=== PATIENT | female | born 1995 | race Caucasian/White ===

== ENCOUNTER → 2016-07-27 | Outpatient (CLI) | payer MEDICAID ==
[~2016-07-27] MED LIST: ACET50TAOT PO; ADVA230A INH; ALBU17IN INH; ALBU83IN INH; BACT400T PO; CARI250T PO; CELE-19 PO; CREO3600 PO; DOXY100C PO; DOXY100T PO; DRIS50002 PO; FLUC10TA PO; HYDR25T PO; IBUP80TA PO; KEFL750C5 PO; LEFL10TA2 PO; LEVA750T PO; MUCI600T34 PO; PANT40TA2 PO; PRED10TA PO; PRED5TA PO; PULM1SOL INH; SING10TA32 PO; VENL37.598 PO; diazePAM 5 MG TAB As Ordered ONE
--- NOTE | 2016-08-12 01:48 | ECWPNPC ---
PATIENT NAME: CHAY GARDUNO : 1995 GENDER: FEMALE VISIT DATE: 07/27/2016 DISCHARGE DATE: 07/27/16 1408 VISIT LOCKED DATE TIME: PHYSICIAN: LUNA SALAZAR RESOURCE: LUNA SALAZAR REASON FOR APPOINTMENT 1. BACK HISTORY OF PRESENT ILLNESS HISTORY OF PRESENT ILLNESS: 21Y/O FEMALE WITH HX OF CHRONIC LBP AND BILATERAL RADICULAR PAIN .HX OF FALL INJURY WITH FRACTURE OF SACRAL SPINE.PAST MEDICAL HX OF CYSTIC FIBROSIS AND RHEUMATOID ARTHRITIS.TRIGGER POINT INJECTIONS ONLY HELPFUL A FEW DAYS POST PROCEDURE.FINDING IT DIFFICULKT TO DO HER JOB AT [employer] DUE TO PAIN.PAIN IS AGGREVATED BY WALKING OR STANDING.CURRENTLY USING ZNAFLEX AT NIGHT WHICH IS HELPFUL TO FALL ASLEEP BUT CONTINUES TO AWAKEN IN PAIN IN MIDDLE OF NIGHT.DISCUSSED MEDICATION AND TREATMENT OPTIONS.RATING PAIN VAS 8/10. FALL RISK SCREENING: SCREENING :NO FALLS IN THE PAST YEAR CURRENT MEDICATIONS TAKING TIZANIDINE HCL 2 MG CAPSULE 1 TO 2 TABLET NEEDED FOR SPASMS AND PAIN ORALLY BEFORE BEDTIME TAKING PULMOZYME 1 MG/ML SOLUTION 2.5 ML INHALATION/NEB ONCE A DAY TAKING CREON 99720 UNIT CAPSULE DELAYED RELEASE PARTICLES THREE CAPS ORALLY WITH EACH MEAL (ANBAR) TAKING SINGULAIR 10 MG TABLET 1 TABLET IN THE EVENING ORALLY ONCE A DAY (ANBAR) TAKING ADVAIR HFA 45-21 MCG/ACT AEROSOL 2 PUFFS INHALATION TWICE A DAY TAKING ALBUTEROL SULFATE (2.5 MG/3ML) 0.083% NEBULIZATION SOLUTION 3 ML INHALATION NEEDED TAKING D3-50 67492 UNIT CAPSULE 1 TAB(S) P.O. ONCE A WEEK TAKING PREDNISONE 10 MG TABLET 1 TABLET ORALLY ONCE A DAY TAKING AZITHROMYCIN 250 MG TABLET ORALLY ONCE A DAY TAKING FISH OIL 1000 MG CAPSULE 1 CAPSULE ORALLY ONCE A DAY TAKING CELEBREX 200 MG CAPSULE 1 CAPSULE ORALLY ONCE A DAY (RHEUMATOLOGY) TAKING MULTI COMPLETE - CAPSULE ORALLY DAILY TAKING PROTONIX 40 MG TABLET DELAYED RELEASE 1 TABLET ORALLY ONCE A DAY TAKING HYDROXYZINE HCL 25 MG TABLET 1/2 TABLET ORALLY TWICE DAILY PRN ATTACKS TAKING EFFEXOR XR 37.5 MG CAPSULE EXTENDED RELEASE 24 HOUR 1 CAPSULE WITH FOOD ORALLY ONCE A DAY TAKING BACTRIM 200-40 MG/5ML SUSPENSION ORALLY NOT-TAKING VENTOLIN HFA 108 (90 BASE) MCG/ACT AEROSOL SOLUTION 2 PUFFS NEEDED INHALATION EVERY 4 HRS (ANBAR) NOT-TAKING DOXYCYCLINE HYCLATE 100 MG CAPSULE 1 CAPSULE ORALLY TWICE A DAY (CF DR IN [place]) NOT-TAKING SOMA 250 MG TABLET 1 TABLET NEEDED ORALLY TWICE A DAY NOT-TAKING ARAVA 20 MG TABLET 1 TABLET ORALLY ONCE A DAY NOT-TAKING KEFLEX 750 MG CAPSULE 1 CAPSULE ORALLY TWICE A DAY, NOTES: HAS THREE DAYS LEFT NOT-TAKING MUCINEX 600 MG TABLET EXTENDED RELEASE 12 HOUR 1 TABLET NEEDED ORALLY EVERY 12 HRS, NOTES: NOT TAKING NOT-TAKING HYDROCORTISONE ACETATE 1 % CREAM DIRECTED EXTERNALLY TO ELBOWS ONCE A DAY NOT-TAKING ADEKS VITAMINS 1 TAB DAILY NOT-TAKING NASONEX 50 MCG/ACT SUSPENSION 2 SPRAYS IN EACH NOSTRIL NASALLY TWICE A DAY NOT-TAKING BOOST 8 LIQUID CANS ORALLY DAILY NOT-TAKING CYPROHEPTADINE HCL 4 MG TABLET 1 TABLET ORALLY DAILY (CF ) NOT-TAKING ENBREL _ SOLUTION DIRECTED SUBCUTANEOUS WEEKLY NOT-TAKING ADVAIR DISKUS 250-50 MCG/DOSE AEROSOL POWDER BREATH ACTIVATED 1 PUFF INHALATION TWICE A DAY NOT-TAKING PULMICORT FLEXHALER 90 MCG/ACT AEROSOL POWDER BREATH ACTIVATED 1 PUFF INHALATION TWICE A DAY NOT-TAKING BACTRIM DS 800-160 MG TABLET 1 TABLET ORALLY ONCE A DAY NOT-TAKING LEUCOVORIN CALCIUM 5 MG TABLET 1 TAB(S) ORALLY THREE TIMES WEEKLY (RHUEMATOLOGIST) NOT-TAKING METHOTREXATE SODIUM 2.5 MG TABLET 10 TABLETS ORALLY WEEKLY (RHUEMATOLOGY) MEDICATION LIST REVIEWED AND RECONCILED WITH THE PATIENT PAST MEDICAL HISTORY CYSTIC FIBROSIS - DR. REARDON [phone] RHEUMATOID ARTHRITIS CCP 124, RF 190 - [facility] RHEUM DR. JUANY MENA 05/22/2014 LEFT ELBOW BURSITITS ALLERGIES KETOROLAC TROMETHAMINE: THROWS UP SOCIAL HISTORY GENERAL: TOBACCO USE ARE YOU A:NONSMOKER LEARNING BARRIERS / SPECIAL NEEDS ORIENTED TO PLAN OF CARE: PATIENT, PAIN MANAGEMENT PATIENT, ORIENTED TO PLAN OF CARE: PATIENT, PAIN MANAGEMENT PATIENT. NEW PATIENT PAIN DIARY TODAY'S VISITNOTES FROM 0-10, WHAT LEVEL IS YOUR PAIN TODAY?0 PAIN CLINIC PFS, CLERGY, PUBLIC HEALTH REFERRALS PFS REFERRAL NEEDED?NO CLERGY REFERRAL NEEDED?NO PUBLIC HEALTH REFERRAL NEEDED?NO WAS THE PROVIDER NOTIFIED OF ANY PERTINENT INFO?NO PFS REFERRAL NEEDED?NO CLERGY REFERRAL NEEDED?NO PUBLIC HEALTH REFERRAL NEEDED?NO WAS THE PROVIDER NOTIFIED OF ANY PERTINENT INFO?NO REVIEW OF SYSTEMS CONSTITUTIONAL: ANY CHANGE IN YOUR MEDICAL CONDITION? NO . RECENT ILLNESS DENIES . CHILLS NO . FEVER NO . WEIGHT LOSS DENIES . INFECTION: DO YOU HAVE NEW INFECTIONS? NO . DO YOU HAVE HISTORY OF MRSA? NO . MUSCULOSKELETAL: ANY NEW PATTERNS OF PAIN OR NUMBNESS? NO . GASTROENTEROLOGY: ANY NEW CHANGE IN BOWEL CONTROL? NO . GENITOURINARY: ANY NEW CHANGE IN BLADDER CONTROL? NO . IS THERE A CHANCE YOU COULD BE ? NO . HEMATOLOGY/LYMPH: DO YOU TAKE ANY BLOOD THINNERS? (FOR EXAMPLE- COUMADIN, PLAVIX, AGGRENOX, PLATEL, PRADAXA, OR XARELTO) NO . WHEN WAS YOUR LAST DOSE? DATE: TIME: . NEUROLOGY: HAVE YOU FALLEN IN THE PAST 6 MONTHS? NO . ANY NEW EXTREMITY NUMBNESS OR WEAKNESS? NO . CARDIOLOGY: DO YOU HAVE A PACEMAKER OR DEFIBRILLATOR? NO . CHEST PAIN DENIES . SHORTNESS OF BREATH DENIES . RESPIRATORY: HAVE YOU BEEN SICK IN THE PAST WEEK? NO . FEVER NO . FLU LIKE SYMPTOMS? NO . COUGH NO, DENIES . SHORTNESS OF BREATH DENIES . INTEGUMENTARY: DO YOU HAVE ANY RASHES OR OPEN SORES? NO . ALLERGIC/IMMUNO: ARE YOU ALLERGIC TO SHELLFISH OR IV DYE? NO . ANY NEW ALLERGIES? NO . PSYCHIATRIC: DO YOU HAVE THOUGHTS OF HURTING YOURSELF OR SOMEONE ELSE? NO . ARE YOU ABUSED, NEGLECTED, OR IN AN UNSAFE ENVIRONMENT? NO . ENDOCRINOLOGY: ARE YOU DIABETIC? NO . OTHER: DO YOU NEED ANY PRESCRIPTIONS? YES CELEBREX . IF YES, PLEASE LIST: ____ . ANY NEW PROBLEMS WITH YOUR MEDICATIONS? NO . WHEN DID YOU LAST EAT? ____ . WHEN DID YOU LAST DRINK? ____ . WHAT DID YOU LAST DRINK? ____ . NAME OF PERSON DRIVING YOU HOME? ____ . DO YOU HAVE ANY OTHER QUESTIONS OR CONCERNS NO . REVIEWED BY: PROVIDER: LUNA CAMPOS . EXAMINATION GENERAL EXAMINATION: LUNGS:LUNG SOUNDS ARE CLEAR. HEART:HEART RATE REGULAR. MUSCULOSKELETAL:*, MUSCLE STRENGTH TESTING 5/5 BILATERAL LOWER EXTREMITIES., PALPATION: POSITIVE FOR PAIN OVER L/S SPINE. POSITIVE FOR PAIN OVER L/S PARSPINALS R>L.SPECIFIC TENDERNESS OVER L4/5-L5/S1 FACETS BILAT R>L. DIAGNOSTIC: . ASSESSMENTS INTERVERTEBRAL DISC DISORDERS WITH RADICULOPATHY, LUMBAR REGION - M51.16 (PRIMARY) RHEUMATOID ARTHRITIS INVOLVING MULTIPLE SITES WITH POSITIVE RHEUMATOID FACTOR - M05.79 TREATMENT INTERVERTEBRAL DISC DISORDERS WITH RADICULOPATHY, LUMBAR REGION START CELEBREX CAPSULE, 200 MG, 1 CAPSULE, ORALLY, ONCE A DAY, 30 DAY(S), 30, REFILLS 5 INJECTION FACET JOINT/NERVE LUMBAR RIGHT PROCEDURE CODES FA211 ESTABILISHED PATIENT [facility] FACILITY CHARGE FOLLOW UP DIAGNOSTIC RIGHT L4/5-L5S1 FACET BLOCK (REASON: F/U 2WK POST) ELECTRONICALLY SIGNED BY ANDRES VALLEJO ON 08/09/2016 AT 06:54 PM EST DISCLAIMER : THIS IS A VISIT SUMMARY EXTRACTED FROM THE [email or web address] CHART. IT IS NOT A COPY OF THE [email or web address] PROGRESS NOTE. ALAN
== END ==
LOC: M PAIN 14:00
PROVIDERS: ATTEND Nurse Practitioner Family
DX: Z09 Encounter for follow-up examination after completed treatment for conditions other than malignant neoplasm (principal); G89.29 Other chronic pain; M51.16 Intervertebral disc disorders with radiculopathy, lumbar region; M05.79 Rheumatoid arthritis with rheumatoid factor of multiple sites without organ or systems involvement; E84.9 Cystic fibrosis, unspecified; M06.9 Rheumatoid arthritis, unspecified; Z88.8 Allergy status to other drugs, medicaments and biological substances; Z79.52 Long term (current) use of systemic steroids; Z79.2 Long term (current) use of antibiotics; Z79.899 Other long term (current) drug therapy

== ENCOUNTER → 2016-09-19 | Outpatient (REF) | payer OTHER ==
[~2016-09-19] MED LIST changes: -diazePAM 5 MG TAB As Ordered ONE
== END ==
LOC: M LAB REF 18:30
PROVIDERS: ATTEND Physician Assistant Medical
DX: J02.9 Acute pharyngitis, unspecified (principal)

== ENCOUNTER → 2016-11-03 | Outpatient (CLI) | payer OTHER, MEDICAID ==
[~2016-11-03] MED LIST changes: +BUPIVACAINE HCL 0.25% 30 ML VIAL As Ordered ONE; +ISOVUE-M 300 61% 15ML VIAL (Q9967) As Ordered ONE; +LIDOCAINE 1% SDV INJ 30 ML VIAL As Ordered ONE
--- NOTE | 2016-11-04 09:51 | REP ---
PARTIAL LUMBAR SPINE SERIES: Two views. HISTORY: Lumbar facet block for pain. 22 seconds of fluoroscopy time is reported. FINDINGS: A sequence of two fluoroscopically obtained intraprocedural spot radiographs of the lumbar spine document needle position and contrast injection associated with bilateral lumbar spine facet injection procedures. Signed by Carlos Ruiz MD 11/04/2016 12:54 P
--- NOTE | 2016-11-07 23:46 | ECWPNPC ---
PATIENT NAME: CHAY GARDUNO : 1995 GENDER: FEMALE VISIT DATE: 11/03/2016 DISCHARGE DATE: 11/03/16 1149 VISIT LOCKED DATE TIME: PHYSICIAN: MARK MARTÍNEZ RESOURCE: MARK MARTÍNEZ REASON FOR APPOINTMENT 1. DIAGNOSTIC FACET HISTORY OF PRESENT ILLNESS HISTORY OF PRESENT ILLNESS: PAIN THE PATIENT DESCRIBES THE PAIN... FALL RISK SCREENING: SCREENING :NO FALLS IN THE PAST YEAR CURRENT MEDICATIONS TAKING TIZANIDINE HCL 2 MG CAPSULE 1 TO 2 TABLET NEEDED FOR SPASMS AND PAIN ORALLY BEFORE BEDTIME, NOTES: OUT OF MED- MONTH TAKING PULMOZYME 1 MG/ML SOLUTION 2.5 ML INHALATION/NEB ONCE A DAY, NOTES: 11-02-161999 TAKING CREON 69846 UNIT CAPSULE DELAYED RELEASE PARTICLES THREE CAPS ORALLY WITH EACH MEAL (ANBAR), NOTES: 11-02-161629 TAKING SINGULAIR 10 MG TABLET 1 TABLET IN THE EVENING ORALLY ONCE A DAY (ANBAR), NOTES: 11-02-161999 TAKING ALBUTEROL SULFATE (2.5 MG/3ML) 0.083% NEBULIZATION SOLUTION 3 ML INHALATION NEEDED, NOTES: 11-02-161999 TAKING D3-50 36783 UNIT CAPSULE 1 TAB(S) P.O. ONCE A WEEK, NOTES: OUT OF MED TAKING PREDNISONE 10 MG TABLET 1 TABLET ORALLY ONCE A DAY, NOTES: 11-02-16799 TAKING AZITHROMYCIN 250 MG TABLET ORALLY ONCE A DAY, NOTES: OUT OF MED - MONTH TAKING FISH OIL 1000 MG CAPSULE 1 CAPSULE ORALLY ONCE A DAY, NOTES: 11-02-161999 TAKING CELEBREX 200 MG CAPSULE 1 CAPSULE ORALLY ONCE A DAY (RHEUMATOLOGY), NOTES: 11-02-16599 TAKING MULTI COMPLETE - CAPSULE ORALLY DAILY, NOTES: 11-02-16599 TAKING PROTONIX 40 MG TABLET DELAYED RELEASE 1 TABLET ORALLY ONCE A DAY, NOTES: 11-02-16599 TAKING HYDROXYZINE HCL 25 MG TABLET 1/2 TABLET ORALLY TWICE DAILY PRN ATTACKS, NOTES: COUPLE WEEKS AGO TAKING EFFEXOR XR 37.5 MG CAPSULE EXTENDED RELEASE 24 HOUR 1 CAPSULE WITH FOOD ORALLY ONCE A DAY, NOTES: 11-02-16599 TAKING BACTRIM 200-40 MG/5ML SUSPENSION ORALLY , NOTES: 11-02-161999 TAKING BREO ELLIPTA 100-25 MCG/INH AEROSOL POWDER BREATH ACTIVATED 1 PUFF INHALATION ONCE A DAY, NOTES: 11-02-16 0600 NOT-TAKING VENTOLIN HFA 108 (90 BASE) MCG/ACT AEROSOL SOLUTION 2 PUFFS NEEDED INHALATION EVERY 4 HRS (ANBAR) NOT-TAKING HYDROCORTISONE ACETATE 1 % CREAM DIRECTED EXTERNALLY TO ELBOWS ONCE A DAY NOT-TAKING ADEKS VITAMINS 1 TAB DAILY NOT-TAKING NASONEX 50 MCG/ACT SUSPENSION 2 SPRAYS IN EACH NOSTRIL NASALLY TWICE A DAY NOT-TAKING BOOST 8 LIQUID CANS ORALLY DAILY NOT-TAKING CYPROHEPTADINE HCL 4 MG TABLET 1 TABLET ORALLY DAILY (CF ) NOT-TAKING ENBREL _ SOLUTION DIRECTED SUBCUTANEOUS WEEKLY NOT-TAKING ADVAIR DISKUS 250-50 MCG/DOSE AEROSOL POWDER BREATH ACTIVATED 1 PUFF INHALATION TWICE A DAY NOT-TAKING PULMICORT FLEXHALER 90 MCG/ACT AEROSOL POWDER BREATH ACTIVATED 1 PUFF INHALATION TWICE A DAY NOT-TAKING BACTRIM DS 800-160 MG TABLET 1 TABLET ORALLY ONCE A DAY NOT-TAKING LEUCOVORIN CALCIUM 5 MG TABLET 1 TAB(S) ORALLY THREE TIMES WEEKLY (RHUEMATOLOGIST) NOT-TAKING METHOTREXATE SODIUM 2.5 MG TABLET 10 TABLETS ORALLY WEEKLY (RHUEMATOLOGY) DISCONTINUED ADVAIR HFA 45-21 MCG/ACT AEROSOL 2 PUFFS INHALATION TWICE A DAY DISCONTINUED CELEBREX 200 MG CAPSULE 1 CAPSULE ORALLY ONCE A DAY DISCONTINUED DOXYCYCLINE HYCLATE 100 MG CAPSULE 1 CAPSULE ORALLY TWICE A DAY (CF IN [place]) DISCONTINUED SOMA 250 MG TABLET 1 TABLET NEEDED ORALLY TWICE A DAY DISCONTINUED ARAVA 20 MG TABLET 1 TABLET ORALLY ONCE A DAY DISCONTINUED KEFLEX 750 MG CAPSULE 1 CAPSULE ORALLY TWICE A DAY, NOTES: HAS THREE DAYS LEFT DISCONTINUED MUCINEX 600 MG TABLET EXTENDED RELEASE 12 HOUR 1 TABLET NEEDED ORALLY EVERY 12 HRS, NOTES: NOT TAKING MEDICATION LIST REVIEWED AND RECONCILED WITH THE PATIENT PAST MEDICAL HISTORY CYSTIC FIBROSIS - DR. REARDON [phone] RHEUMATOID ARTHRITIS CCP 124, RF 190 - [facility]HE[facility] DR. JUANY MENA 05/22/2014 LEFT ELBOW BURSITITS ALLERGIES KETOROLAC TROMETHAMINE: THROWS UP REVIEW OF SYSTEMS CONSTITUTIONAL: ANY CHANGE IN YOUR MEDICAL CONDITION? NO . CHILLS NO . FEVER NO . INFECTION: DO YOU HAVE NEW INFECTIONS? NO . DO YOU HAVE HISTORY OF MRSA? NO . MUSCULOSKELETAL: ANY NEW PATTERNS OF PAIN OR NUMBNESS? NO . GASTROENTEROLOGY: ANY NEW CHANGE IN BOWEL CONTROL? NO . GENITOURINARY: ANY NEW CHANGE IN BLADDER CONTROL? NO . IS THERE A CHANCE YOU COULD BE ? NO . HEMATOLOGY/LYMPH: DO YOU TAKE ANY BLOOD THINNERS? (FOR EXAMPLE- COUMADIN, PLAVIX, AGGRENOX, PLATEL, PRADAXA, OR XARELTO) NO . WHEN WAS YOUR LAST DOSE? DATE: TIME: . NEUROLOGY: HAVE YOU FALLEN IN THE PAST 6 MONTHS? NO . ANY NEW EXTREMITY NUMBNESS OR WEAKNESS? NO . CARDIOLOGY: DO YOU HAVE A PACEMAKER OR DEFIBRILLATOR? NO . RESPIRATORY: HAVE YOU BEEN SICK IN THE PAST WEEK? NO . FEVER NO . FLU LIKE SYMPTOMS? NO . COUGH NO . INTEGUMENTARY: DO YOU HAVE ANY RASHES OR OPEN SORES? NO . ALLERGIC/IMMUNO: ARE YOU ALLERGIC TO SHELLFISH OR IV DYE? NO . ANY NEW ALLERGIES? NO . PSYCHIATRIC: DO YOU HAVE THOUGHTS OF HURTING YOURSELF OR SOMEONE ELSE? NO . ARE YOU ABUSED, NEGLECTED, OR IN AN UNSAFE ENVIRONMENT? NO . ENDOCRINOLOGY: ARE YOU DIABETIC? NO . OTHER: DO YOU NEED ANY PRESCRIPTIONS? YES . IF YES, PLEASE LIST: TIZANIDNE . ANY NEW PROBLEMS WITH YOUR MEDICATIONS? NO . WHEN DID YOU LAST EAT? 11-02-16 9PM . WHEN DID YOU LAST DRINK? 11-03-16 0500 . WHAT DID YOU LAST DRINK? [place] . NAME OF PERSON DRIVING YOU HOME? MOM- TANK CLARKE . DO YOU HAVE ANY OTHER QUESTIONS OR CONCERNS NO . REVIEWED BY: PROVIDER: . VITAL SIGNS WT 107 LBS, HT 62.5 IN, BMI 19.26 INDEX, BP 130/84 MM HG, HR 88 /MIN, RR 16 /MIN, TEMP 98.3 F, OXYGEN SAT % 97%, NA INITIALS SC 10:19, REVIEWED BY: CM. ASSESSMENTS SPONDYLOSIS WITHOUT MYELOPATHY OR RADICULOPATHY, LUMBAR REGION - M47.816 (PRIMARY) SPONDYLOSIS WITHOUT MYELOPATHY OR RADICULOPATHY, LUMBOSACRAL REGION - M47.817 PROCEDURES PN LUMBAR FACET BLOCK DIAGNOSTIC PRE PROCEDURE DIAGNOSIS LUMBAR SPONDYLOSIS, LUMBOSACRAL SPONDYLOSIS POST PROCEDURE DIAGNOSIS LUMBAR SPONDYLOSIS, LUMBOSACRAL SPONDYLOSIS PROCEDURE BILATERAL L4-L5 AND BILATERAL L5-S1 FACET BLOCK DIAGNOSTIC NUMBER [address] MARK MARTÍNEZ PASTE UP ARTIST NONE ANESTHESIA LOCAL PRE PROCEDURE NOTE THE PATIENT WITH HISTORY OF CHRONIC LOW BACK PAIN. I EVALUATED THE PATIENT AND REVIEWED THE CHART. I WENT OVER THE RISKS, ALTERNATIVES, AND BENEFITS ASSOCIATED WITH THIS PROCEDURE. THE PATIENT WOULD LIKE TO PROCEED AND GAVE CONSENT TO PERFORM THE PROCEDURE. AGREED WITH THE PATIENT WE ARE DOING THIS PROCEDURE TO DETERMINE IF THE PATIENT IS A CANDIDATE FOR A RADIOFREQUENCY ABLATION OF THE FACETS JOINTS. THE PATIENT DENIES UNEXPLAINABLE WEIGHT LOSS, FEVER, CHILLS, OR NEW CHANGES IN URINARY OR BOWEL CONTROL DESCRIPTION OF PROCEDURE THE PATIENT WAS BROUGHT TO THE PROCEDURE ROOM AND PLACED IN THE PRONE POSITION. THE LUMBOSACRAL AREA WAS CLEANED WITH CHLORAPREP SOLUTION AND DRAPED ASEPTICALLY. THE PROCEDURE WAS DONE UNDER STERILE CONDITIONS. I CHECKED LATERALITY AND THE LEVEL WHERE THE PROCEDURE WAS GOING TO BE PERFORMED WITH THE PATIENT AND THE SUPPORTING STAFF AT THE MOMENT OF THE TIME OUT IN THE PROCEDURE ROOM. UNDER FLUOROSCOPIC GUIDANCE, TARGETS WERE SELECTED AT THE INTERSECTION OF THE RIGHT AND LEFT TRANSVERSE PROCESS OF L4, L5 AND ALA OF S1 WITH ITS RESPECTIVE SUPERIOR ARTICULAR PROCESS. LIDOCAINE WAS USED TO NUMB THE SKIN AND THE SUBCUTANEOUS TISSUE BELOW IT. SPINAL NEEDLE, 22-GAUGE WAS ADVANCED UNDER FLUOROSCOPIC GUIDANCE AND FOLLOWING PATIENT FEEDBACK UNTIL THE TARGETS WERE REACHED. POSITION OF THE NEEDLES WAS VERIFIED WITH AP AND LATERAL VIEWS. AFTER PROPER POSITION OF THE NEEDLES WAS ACHIEVED, ISOVUE-M DYE 30% 0.1 ML WAS INJECTED AT EACH SITE SHOWING ADEQUATE SPREAD OF THE DYE. THEN A SOLUTION OF 0.4 ML OF BUPIVACAINE 0.25% WAS INJECTED AT EACH SITE. THERE WAS NO EVIDENCE OF BLOOD, PARESTHESIA OR CEREBROSPINAL FLUID DURING THE PROCEDURE. THE PATIENT WAS SENT TO THE RECOVERY ROOM. THE PATIENT WAS MOVING THE EXTREMITIES AND DOING WELL. THERE WAS NO COMPLICATION DURING THE PROCEDURE. FLUOROSCOPY TIME WAS 22 SECONDS POST PROCEDURE NOTE THE PATIENT WILL DOCUMENT HIS PAIN LEVEL AND RESPONSE TO THIS PROCEDURE EVERY 30 MINUTES. THE PATIENT WILL BE SEEN IN A FOLLOW UP IN THE NEXT FEW WEEKS. FURTHER DETERMINATION FOR HIS CASE WILL BE DONE AT THE NEXT VISIT. INSTRUCTIONS WERE GIVEN, QUESTIONS WERE ANSWERED, AND THE PATIENT EXPRESSED UNDERSTANDING AND AGREED WITH THE PLAN. I, MAINOR CASEY, DOCUMENTED THE ABOVE INFORMATION ACTING A SCRIBE FOR DR. MARTÍNEZ. I HAVE REVIEWED THE ABOVE DOCUMENT, WRITTEN BY MAINOR CASEY SCRIBSen AND I VERIFY THAT IT IS ACCURATE DIAGNOSTIC [facility] FACET BLOCK (PAIN)[id number] PROCEDURE CODES 6045F RADXPS IN END [id number] PXD 35831 INJ PARAVERT F JNT L/S 1 LEV 00430 INJ PARAVERT F JNT L/S 2 LEV DISPOSITION & COMMUNICATION FOLLOW UP 3 WEEKS ELECTRONICALLY SIGNED BY MARK MARTÍNEZ MD ON 11/07/2016 AT 01:52 PM EDT DISCLAIMER : THIS IS A VISIT SUMMARY EXTRACTED FROM THE [employer] CHART. IT IS NOT A COPY OF THE [employer] PROGRESS NOTE. MTDD
== END | disposition home or self-care (01) ==
LOC: M PAIN 10:20
PROVIDERS: ATTEND Anesthesiology
DX: G89.29 Other chronic pain (principal); M47.816 Spondylosis without myelopathy or radiculopathy, lumbar region; M47.817 Spondylosis without myelopathy or radiculopathy, lumbosacral region; E84.9 Cystic fibrosis, unspecified; M06.9 Rheumatoid arthritis, unspecified; Z79.899 Other long term (current) drug therapy; Z79.51 Long term (current) use of inhaled steroids; Z79.52 Long term (current) use of systemic steroids; Z88.8 Allergy status to other drugs, medicaments and biological substances
CPT/HCPCS: 64493; 64494; Q9967

== ENCOUNTER → 2016-11-19 | Outpatient (CLI) | payer OTHER ==
[~2016-11-19] MED LIST changes: -BUPIVACAINE HCL 0.25% 30 ML VIAL As Ordered ONE; -ISOVUE-M 300 61% 15ML VIAL (Q9967) As Ordered ONE; -LIDOCAINE 1% SDV INJ 30 ML VIAL As Ordered ONE
--- NOTE | 2016-11-19 16:08 | REP ---
Chest x-ray: Two views: History: Chest pain. History of cystic fibrosis. Comparison chest x-ray 07/05/2015. Findings: The lungs are symmetrically aerated. There are bilateral interstitial and nodular densities chronic marking in the upper lobes. This is actually somewhat improved from the most recent prior study of 07/05/2015. No new superimposed infiltrate is seen. There is mild fullness in the main pulmonary artery segment of the left heart border unchanged from prior exam. Pleural angles are sharp. Heart is not enlarged. No bony abnormality is seen. Impression: Pulmonary parenchymal findings compatible with cystic fibrosis. No acute infiltrate is seen. Signed by Carlos Ruiz MD 11/19/2016 04:40 P
== END ==
LOC: M RAD 15:38
PROVIDERS: ATTEND Internal Medicine Critical Care Medicine
DX: R07.9 Chest pain, unspecified (principal)

== ENCOUNTER → 2017-01-04 | Outpatient (CLI) | payer OTHER, MEDICAID ==
[~2017-01-04] MED LIST changes: -CELE-19 PO; +CELE1CAP4 PO; +HYDR-3363 PO; -HYDR25T PO; -LEVA750T PO; +LEVA750T7 PO; -MUCI600T34 PO; +MUCI600T37 PO
--- NOTE | 2017-01-20 00:43 | ECWPNPC ---
PATIENT NAME: CHAY GARDUNO : 1995 GENDER: FEMALE VISIT DATE: 01/04/2017 DISCHARGE DATE: 01/04/17 1209 VISIT LOCKED DATE TIME: PHYSICIAN: LUNA SALAZAR RESOURCE: LUNA SALAZAR REASON FOR APPOINTMENT 1. POST PROC HISTORY OF PRESENT ILLNESS HISTORY OF PRESENT ILLNESS: HERE FOR POST PROCEDURE F/U.HAD BILATERAL L4/5-L5/S1 DIAGNOSTIC FACET BLOCK ON 11-03-16.HOURLY PAIN DIARY REVIEWED.THIS IS SHOWING 24H PAIN RELIEF.RATING PAIN VAS 3/10.CURRENTLY TAKING AN HERBAL KRATOM 3 CAP DAILY AND REPORTS THAT THIS IS HELPFUL.STATES IT HELPS HER GET THROUGH WORK.DESCRIBES CONSTSNT LOW BACK PAIN THAT IS BURNING IN NATURE. PAIN THE PATIENT DESCRIBES THE PAIN... FALL RISK SCREENING: SCREENING :NO FALLS IN THE PAST YEAR CURRENT MEDICATIONS TAKING TIZANIDINE HCL 2 MG CAPSULE 1 TO 2 TABLET NEEDED FOR SPASMS AND PAIN ORALLY BEFORE BEDTIME TAKING PULMOZYME 1 MG/ML SOLUTION 2.5 ML INHALATION/NEB ONCE A DAY TAKING CREON 54128 UNIT CAPSULE DELAYED RELEASE PARTICLES THREE CAPS ORALLY WITH EACH MEAL (ANBAR) TAKING SINGULAIR 10 MG TABLET 1 TABLET IN THE EVENING ORALLY ONCE A DAY (ANBAR) TAKING ALBUTEROL SULFATE (2.5 MG/3ML) 0.083% NEBULIZATION SOLUTION 3 ML INHALATION NEEDED TAKING D3-50 23561 UNIT CAPSULE 1 TAB(S) P.O. ONCE A WEEK TAKING PREDNISONE 10 MG TABLET 1 TABLET ORALLY ONCE A DAY TAKING AZITHROMYCIN 250 MG TABLET ORALLY ONCE A DAY TAKING FISH OIL 1000 MG CAPSULE 1 CAPSULE ORALLY ONCE A DAY TAKING CELEBREX 200 MG CAPSULE 1 CAPSULE ORALLY ONCE A DAY (RHEUMATOLOGY) TAKING MULTI COMPLETE - CAPSULE ORALLY DAILY TAKING PROTONIX 40 MG TABLET DELAYED RELEASE 1 TABLET ORALLY ONCE A DAY TAKING HYDROXYZINE HCL 25 MG TABLET 1/2 TABLET ORALLY TWICE DAILY PRN ATTACKS TAKING EFFEXOR XR 37.5 MG CAPSULE EXTENDED RELEASE 24 HOUR 1 CAPSULE WITH FOOD ORALLY ONCE A DAY TAKING BACTRIM 200-40 MG/5ML SUSPENSION ORALLY TAKING BREO ELLIPTA 100-25 MCG/INH AEROSOL POWDER BREATH ACTIVATED 1 PUFF INHALATION ONCE A DAY NOT-TAKING VENTOLIN HFA 108 (90 BASE) MCG/ACT AEROSOL SOLUTION 2 PUFFS NEEDED INHALATION EVERY 4 HRS (ANBAR) NOT-TAKING HYDROCORTISONE ACETATE 1 % CREAM DIRECTED EXTERNALLY TO ELBOWS ONCE A DAY NOT-TAKING ADEKS VITAMINS 1 TAB DAILY NOT-TAKING NASONEX 50 MCG/ACT SUSPENSION 2 SPRAYS IN EACH NOSTRIL NASALLY TWICE A DAY NOT-TAKING BOOST 8 LIQUID CANS ORALLY DAILY NOT-TAKING CYPROHEPTADINE HCL 4 MG TABLET 1 TABLET ORALLY DAILY (CF ) NOT-TAKING ENBREL _ SOLUTION DIRECTED SUBCUTANEOUS WEEKLY NOT-TAKING ADVAIR DISKUS 250-50 MCG/DOSE AEROSOL POWDER BREATH ACTIVATED 1 PUFF INHALATION TWICE A DAY NOT-TAKING PULMICORT FLEXHALER 90 MCG/ACT AEROSOL POWDER BREATH ACTIVATED 1 PUFF INHALATION TWICE A DAY NOT-TAKING BACTRIM DS 800-160 MG TABLET 1 TABLET ORALLY ONCE A DAY NOT-TAKING LEUCOVORIN CALCIUM 5 MG TABLET 1 TAB(S) ORALLY THREE TIMES WEEKLY (RHUEMATOLOGIST) NOT-TAKING METHOTREXATE SODIUM 2.5 MG TABLET 10 TABLETS ORALLY WEEKLY (RHUEMATOLOGY) MEDICATION LIST REVIEWED AND RECONCILED WITH THE PATIENT PAST MEDICAL HISTORY CYSTIC FIBROSIS - DR. REARDON [phone] RHEUMATOID ARTHRITIS CCP 124, RF 190 - [facility] DR. JUANY MENA 05/22/2014 LEFT ELBOW BURSITITS ALLERGIES KETOROLAC TROMETHAMINE: THROWS UP SURGICAL HISTORY NO SURGICAL HISTORY DOCUMENTED. HOSPITALIZATION/MAJOR DIAGNOSTIC PROCEDURE CYSTIC FIBROSIS BOWEL BLOCKAGE 04/02/15-04/06/15 PNEUMONIA 06/2015 ARTHRITIS REVIEW OF SYSTEMS REVIEWED BY: PROVIDER: LUNA CAMPOS . CONSTITUTIONAL: ANY CHANGE IN YOUR MEDICAL CONDITION? NO . CHILLS NO . FEVER NO . INFECTION: DO YOU HAVE NEW INFECTIONS? NO . DO YOU HAVE HISTORY OF MRSA? NO . MUSCULOSKELETAL: ANY NEW PATTERNS OF PAIN OR NUMBNESS? YES, AFTER STANDING LONG PERIODS OF TIME PT C/O BILAT THIGH PAIN . GASTROENTEROLOGY: ANY NEW CHANGE IN BOWEL CONTROL? NO . GENITOURINARY: ANY NEW CHANGE IN BLADDER CONTROL? NO . IS THERE A CHANCE YOU COULD BE ? NO . HEMATOLOGY/LYMPH: DO YOU TAKE ANY BLOOD THINNERS? (FOR EXAMPLE- COUMADIN, PLAVIX, AGGRENOX, PLATEL, PRADAXA, OR XARELTO) NO . WHEN WAS YOUR LAST DOSE? DATE: TIME: . NEUROLOGY: HAVE YOU FALLEN IN THE PAST 6 MONTHS? NO . ANY NEW EXTREMITY NUMBNESS OR WEAKNESS? NO . CARDIOLOGY: DO YOU HAVE A PACEMAKER OR DEFIBRILLATOR? NO . RESPIRATORY: HAVE YOU BEEN SICK IN THE PAST WEEK? NO . FEVER NO . FLU LIKE SYMPTOMS? NO . COUGH NO . INTEGUMENTARY: DO YOU HAVE ANY RASHES OR OPEN SORES? NO . ALLERGIC/IMMUNO: ARE YOU ALLERGIC TO SHELLFISH OR IV DYE? NO . ANY NEW ALLERGIES? NO . PSYCHIATRIC: DO YOU HAVE THOUGHTS OF HURTING YOURSELF OR SOMEONE ELSE? NO . ARE YOU ABUSED, NEGLECTED, OR IN AN UNSAFE ENVIRONMENT? NO . ENDOCRINOLOGY: ARE YOU DIABETIC? NO . OTHER: DO YOU NEED ANY PRESCRIPTIONS? NO . IF YES, PLEASE LIST: ____ . ANY NEW PROBLEMS WITH YOUR MEDICATIONS? NO . WHEN DID YOU LAST EAT? ____ . WHEN DID YOU LAST DRINK? ____ . WHAT DID YOU LAST DRINK? ____ . NAME OF PERSON DRIVING YOU HOME? ____ . DO YOU HAVE ANY OTHER QUESTIONS OR CONCERNS NO . VITAL SIGNS WT 107.0 LBS, HT 62.5 IN, BMI 19.26 INDEX, BP 128/82 MM HG, HR 64 /MIN, RR 16 /MIN, TEMP 98.0 F, OXYGEN SAT % 98%, SAFE IN ENV? (Y/N) Y, NA INITIALS TL 1122, REVIEWED BY: EM. EXAMINATION GENERAL EXAMINATION: LUNGS:LUNG SOUNDS ARE CLEAR. HEART:HEART RATE REGULAR. MUSCULOSKELETAL:*, MUSCLE STRENGTH TESTING 5/5 BILATERAL LOWER EXTREMITIES., PALPATION: POSITIVE FOR PAIN OVER L/S SPINE. POSITIVE FOR PAIN OVER L/S PARSPINALS R>L.SPECIFIC TENDERNESS OVER L4/5-L5/S1 FACETS BILAT R>L. DIAGNOSTIC: . ASSESSMENTS INTERVERTEBRAL DISC DISORDERS WITH RADICULOPATHY, LUMBAR REGION - M51.16 (PRIMARY) RHEUMATOID ARTHRITIS INVOLVING MULTIPLE SITES WITH POSITIVE RHEUMATOID FACTOR - M05.79 TREATMENT INTERVERTEBRAL DISC DISORDERS WITH RADICULOPATHY, LUMBAR REGION NOTES: DIAGNOSTIC L4/5-L5/S1 BLOCK #2. PROCEDURE CODES FA211 ESTABILISHED PATIENT [facility] FACILITY CHARGE DISPOSITION & COMMUNICATION FOLLOW UP 2WK POST (REASON: DIAGNOSTIC L4/5-L5/S1 BLOCK #2) ELECTRONICALLY SIGNED BY ANDRES VALLEJO ON 01/19/2017 AT 09:37 AM EDT DISCLAIMER : THIS IS A VISIT SUMMARY EXTRACTED FROM THE [employer] CHART. IT IS NOT A COPY OF THE [employer] PROGRESS NOTE. MTDD
== END ==
LOC: M PAIN 11:00
PROVIDERS: ATTEND Nurse Practitioner Family
DX: G89.29 Other chronic pain (principal); M51.16 Intervertebral disc disorders with radiculopathy, lumbar region; M05.79 Rheumatoid arthritis with rheumatoid factor of multiple sites without organ or systems involvement; E84.9 Cystic fibrosis, unspecified; M06.9 Rheumatoid arthritis, unspecified; Z79.899 Other long term (current) drug therapy; Z79.51 Long term (current) use of inhaled steroids; Z88.8 Allergy status to other drugs, medicaments and biological substances

== ENCOUNTER → 2017-03-23 | Outpatient (CLI) | payer OTHER, MEDICAID ==
[~2017-03-23] MED LIST changes: +BUPIVACAINE HCL 0.25% 30 ML VIAL As Ordered ONE; +ISOVUE-M 300 61% 15ML VIAL (Q9967) As Ordered ONE; +LIDOCAINE 1% SDV INJ 30 ML VIAL As Ordered ONE
--- NOTE | 2017-03-24 09:08 | REP ---
RIGHT FACET BLOCK: All imaging was reviewed with Dr. Nava prior to dictation. The portable C-arm was provided in the OR for Dr. Townsend for fluoroscopic guidance. Two intraoperative fluoroscopic spot films were obtained using last image hold technology for needle placement verification for right lumbar facet injection. The films are on the PACS system and available for review. Fluoroscopy time of 32 seconds were utilized in this procedure. Reviewed by ALBERTINA Desai 03/24/2017 09:46 AEdited and Signed by Clemente Nava MD 03/24/2017 08:00 P
--- NOTE | 2017-03-30 01:05 | ECWPNPC ---
PATIENT NAME: CHAY GARDUNO : 1995 GENDER: FEMALE VISIT DATE: 03/23/2017 DISCHARGE DATE: 03/23/17 1208 VISIT LOCKED DATE TIME: PHYSICIAN: MARK MARTÍNEZ RESOURCE: MARK MARTÍNEZ REASON FOR APPOINTMENT 1. DIAGNOSTIC FACET HISTORY OF PRESENT ILLNESS HISTORY OF PRESENT ILLNESS: PAIN THE PATIENT DESCRIBES THE PAIN... FALL RISK SCREENING: SCREENING :NO FALLS IN THE PAST YEAR CURRENT MEDICATIONS TAKING TIZANIDINE HCL 2 MG CAPSULE 1 TO 2 TABLET NEEDED FOR SPASMS AND PAIN ORALLY BEFORE BEDTIME, NOTES: 03/22/172199 TAKING PULMOZYME 1 MG/ML SOLUTION 2.5 ML INHALATION/NEB ONCE A DAY, NOTES: 03/22/172199 TAKING CREON 55124 UNIT CAPSULE DELAYED RELEASE PARTICLES THREE CAPS ORALLY WITH EACH MEAL (ANBAR), NOTES: 03/22/162199 TAKING SINGULAIR 10 MG TABLET 1 TABLET IN THE EVENING ORALLY ONCE A DAY (ANBAR), NOTES: 03/22/172199 TAKING ALBUTEROL SULFATE (2.5 MG/3ML) 0.083% NEBULIZATION SOLUTION 3 ML INHALATION NEEDED, NOTES: NONE LATELY TAKING D3-50 37936 UNIT CAPSULE 1 TAB(S) P.O. ONCE A WEEK, NOTES: 03/22/17799 TAKING PREDNISONE 10 MG TABLET 1 TABLET ORALLY ONCE A DAY, NOTES: 03/20/17 AM TAKING AZITHROMYCIN 250 MG TABLET ORALLY ONCE A DAY, NOTES: 03/21/17 TAKING CELEBREX 200 MG CAPSULE 1 CAPSULE ORALLY ONCE A DAY (RHEUMATOLOGY), NOTES: 03/20/17 AM TAKING MULTI COMPLETE - CAPSULE ORALLY DAILY, NOTES: 03/22/17799 TAKING PROTONIX 40 MG TABLET DELAYED RELEASE 1 TABLET ORALLY ONCE A DAY, NOTES: NONE LATELY TAKING HYDROXYZINE HCL 25 MG TABLET 1/2 TABLET ORALLY TWICE DAILY PRN ATTACKS, NOTES: NONE LATELY TAKING EFFEXOR XR 37.5 MG CAPSULE EXTENDED RELEASE 24 HOUR 1 CAPSULE WITH FOOD ORALLY ONCE A DAY, NOTES: NONE LATELY TAKING BACTRIM 200-40 MG/5ML SUSPENSION ORALLY , NOTES: 03/22/17799 TAKING BREO ELLIPTA 100-25 MCG/INH AEROSOL POWDER BREATH ACTIVATED 1 PUFF INHALATION ONCE A DAY, NOTES: 03/22/17799 TAKING BETHKIS 300 MG/4ML NEBULIZATION SOLUTION 4 ML INHALATION EVERY 12 HRS, NOTES: 03/23/17 0800 NOT-TAKING FISH OIL 1000 MG CAPSULE 1 CAPSULE ORALLY ONCE A DAY NOT-TAKING VENTOLIN HFA 108 (90 BASE) MCG/ACT AEROSOL SOLUTION 2 PUFFS NEEDED INHALATION EVERY 4 HRS (ANBAR) NOT-TAKING HYDROCORTISONE ACETATE 1 % CREAM DIRECTED EXTERNALLY TO [place] ONCE A DAY NOT-TAKING ADEKS VITAMINS 1 TAB DAILY NOT-TAKING NASONEX 50 MCG/ACT SUSPENSION 2 SPRAYS IN EACH NOSTRIL NASALLY TWICE A DAY NOT-TAKING BOOST 8 LIQUID CANS ORALLY DAILY NOT-TAKING CYPROHEPTADINE HCL 4 MG TABLET 1 TABLET ORALLY DAILY (CF DR) NOT-TAKING ENBREL _ SOLUTION DIRECTED SUBCUTANEOUS WEEKLY NOT-TAKING ADVAIR DISKUS 250-50 MCG/DOSE AEROSOL POWDER BREATH ACTIVATED 1 PUFF INHALATION TWICE A DAY NOT-TAKING PULMICORT FLEXHALER 90 MCG/ACT AEROSOL POWDER BREATH ACTIVATED 1 PUFF INHALATION TWICE A DAY NOT-TAKING BACTRIM DS 800-160 MG TABLET 1 TABLET ORALLY ONCE A DAY NOT-TAKING LEUCOVORIN CALCIUM 5 MG TABLET 1 TAB(S) ORALLY THREE TIMES WEEKLY (RHUEMATOLOGIST) NOT-TAKING METHOTREXATE SODIUM 2.5 MG TABLET 10 TABLETS ORALLY WEEKLY (RHUEMATOLOGY) MEDICATION LIST REVIEWED AND RECONCILED WITH THE PATIENT PAST MEDICAL HISTORY CYSTIC FIBROSIS - DR. REARDON [phone] RHEUMATOID ARTHRITIS CCP 124, RF 190 - [facility] RHEUM DR. JUANY MENA 05/22/2014 LEFT ELBOW BURSITITS ALLERGIES KETOROLAC TROMETHAMINE: THROWS UP SURGICAL HISTORY DENIES PAST SURGICAL HISTORY SOCIAL HISTORY GENERAL: TOBACCO USE ARE YOU A:NONSMOKER LEARNING BARRIERS / SPECIAL NEEDS ORIENTED TO PLAN OF CARE: PATIENT, PAIN MANAGEMENT PATIENT, ORIENTED TO PLAN OF CARE: PATIENT, PAIN MANAGEMENT PATIENT. NEW PATIENT PAIN DIARY TODAY'S VISITNOTES FROM 0-10, WHAT LEVEL IS YOUR PAIN TODAY?0 PAIN CLINIC PFS, CLERGY, PUBLIC HEALTH REFERRALS PFS REFERRAL NEEDED?NO CLERGY REFERRAL NEEDED?NO PUBLIC HEALTH REFERRAL NEEDED?NO WAS THE PROVIDER NOTIFIED OF ANY PERTINENT INFO?NO HAS THE PATIENT BEEN EDUCATED REGARDING HIS/HER PLAN OF CARE?YES HAS THE PATIENT BEEN EDUCATED REGARDING PAIN, THE RISK FOR PAIN, THE IMPORTANCE OF EFFECTIVE PAIN MANAGEMENT, AND THE PAIN ASSESSMENT PROCESS?YES HOSPITALIZATION/MAJOR DIAGNOSTIC PROCEDURE CYSTIC FIBROSIS BOWEL BLOCKAGE 04/02/15-04/06/15 PNEUMONIA 06/2015 ARTHRITIS REVIEW OF SYSTEMS REVIEWED BY: PROVIDER: . CONSTITUTIONAL: ANY CHANGE IN YOUR MEDICAL CONDITION? NO . CHILLS NO . FEVER NO . INFECTION: DO YOU HAVE NEW INFECTIONS? NO . DO YOU HAVE HISTORY OF MRSA? NO . MUSCULOSKELETAL: ANY NEW PATTERNS OF PAIN OR NUMBNESS? NO . GASTROENTEROLOGY: ANY NEW CHANGE IN BOWEL CONTROL? NO . GENITOURINARY: ANY NEW CHANGE IN BLADDER CONTROL? NO . IS THERE A CHANCE YOU COULD BE ? NO . HEMATOLOGY/LYMPH: DO YOU TAKE ANY BLOOD THINNERS? (FOR EXAMPLE- COUMADIN, PLAVIX, AGGRENOX, PLATEL, PRADAXA, OR XARELTO) NO . WHEN WAS YOUR LAST DOSE? DATE: TIME: . NEUROLOGY: HAVE YOU FALLEN IN THE PAST 6 MONTHS? NO . ANY NEW EXTREMITY NUMBNESS OR WEAKNESS? NO . CARDIOLOGY: DO YOU HAVE A PACEMAKER OR DEFIBRILLATOR? NO . RESPIRATORY: HAVE YOU BEEN SICK IN THE PAST WEEK? NO . FEVER NO . FLU LIKE SYMPTOMS? NO . COUGH NO . INTEGUMENTARY: DO YOU HAVE ANY RASHES OR OPEN SORES? NO . ALLERGIC/IMMUNO: ARE YOU ALLERGIC TO SHELLFISH OR IV DYE? NO . ANY NEW ALLERGIES? NO . PSYCHIATRIC: DO YOU HAVE THOUGHTS OF HURTING YOURSELF OR SOMEONE ELSE? NO . ARE YOU ABUSED, NEGLECTED, OR IN AN UNSAFE ENVIRONMENT? NO . ENDOCRINOLOGY: ARE YOU DIABETIC? NO . OTHER: DO YOU NEED ANY PRESCRIPTIONS? NO . IF YES, PLEASE LIST: ____ . ANY NEW PROBLEMS WITH YOUR MEDICATIONS? NO . WHEN DID YOU LAST EAT? ____7 PM LAST NIGHT . WHEN DID YOU LAST DRINK? ____7 AM THIS MORNING . WHAT DID YOU LAST DRINK? __WATER . NAME OF PERSON DRIVING YOU HOME? __GENNARO GARDUNO . DO YOU HAVE ANY OTHER QUESTIONS OR CONCERNS NO . VITAL SIGNS WT 105.2 LBS, HT 62.5 IN, BMI 18.93 INDEX, BP 125/67 MM HG, HR 97 /MIN, RR 16 /MIN, TEMP 98.4 F, OXYGEN SAT % 96, NA INITIALS MP 1001, REVIEWED BY: KG. ASSESSMENTS SPONDYLOSIS OF LUMBAR REGION WITHOUT MYELOPATHY OR RADICULOPATHY - M47.816 (PRIMARY) SPONDYLOSIS OF LUMBOSACRAL REGION WITHOUT MYELOPATHY OR RADICULOPATHY - M47.817 PROCEDURES PN LUMBAR FACET BLOCK DIAGNOSTIC PRE PROCEDURE DIAGNOSIS LUMBAR SPONDYLOSIS, LUMBOSACRAL SPONDYLOSIS POST PROCEDURE DIAGNOSIS LUMBAR SPONDYLOSIS, LUMBOSACRAL SPONDYLOSIS PROCEDURE RIGHT L4-L5 AND RIGHT L5-S1 FACET BLOCK DIAGNOSTIC NUMBER [address] MARK MARTÍNEZ CORE SHAPER TOP NONE ANESTHESIA LOCAL PRE PROCEDURE NOTE THE PATIENT WITH HISTORY OF CHRONIC LOW BACK PAIN. I EVALUATED THE PATIENT AND REVIEWED THE CHART. I WENT OVER THE RISKS, ALTERNATIVES, AND BENEFITS ASSOCIATED WITH THIS PROCEDURE. THE PATIENT WOULD LIKE TO PROCEED AND GAVE CONSENT TO PERFORM THE PROCEDURE. AGREED WITH THE PATIENT WE ARE DOING THIS PROCEDURE TO DETERMINE IF THE PATIENT IS A CANDIDATE FOR A RADIOFREQUENCY ABLATION OF THE FACETS JOINTS. THE PATIENT DENIES UNEXPLAINABLE WEIGHT LOSS, FEVER, CHILLS, OR NEW CHANGES IN URINARY OR BOWEL CONTROL DESCRIPTION OF PROCEDURE THE PATIENT WAS BROUGHT TO THE PROCEDURE ROOM AND PLACED IN THE PRONE POSITION. THE LUMBOSACRAL AREA WAS CLEANED WITH CHLORAPREP SOLUTION AND DRAPED ASEPTICALLY. THE PROCEDURE WAS DONE UNDER STERILE CONDITIONS. I CHECKED LATERALITY AND THE LEVEL WHERE THE PROCEDURE WAS GOING TO BE PERFORMED WITH THE PATIENT AND THE SUPPORTING STAFF AT THE MOMENT OF THE TIME OUT IN THE PROCEDURE ROOM. UNDER FLUOROSCOPIC GUIDANCE, TARGETS WERE SELECTED AT THE INTERSECTION OF THE RIGHT TRANSVERSE PROCESS OF L4, L5 AND ALA OF S1 WITH ITS RESPECTIVE SUPERIOR ARTICULAR PROCESS. LIDOCAINE WAS USED TO NUMB THE SKIN AND THE SUBCUTANEOUS TISSUE BELOW IT. SPINAL NEEDLE, 22-GAUGE WAS ADVANCED UNDER FLUOROSCOPIC GUIDANCE AND FOLLOWING PATIENT FEEDBACK UNTIL THE TARGETS WERE REACHED. POSITION OF THE NEEDLES WAS VERIFIED WITH AP AND LATERAL VIEWS. AFTER PROPER POSITION OF THE NEEDLES WAS ACHIEVED, ISOVUE-M DYE 30% 0.1 ML WAS INJECTED AT EACH SITE SHOWING ADEQUATE SPREAD OF THE DYE. THEN A SOLUTION OF 0.4 ML OF BUPIVACAINE 0.25% WAS INJECTED AT EACH SITE. THERE WAS NO EVIDENCE OF BLOOD, PARESTHESIA OR CEREBROSPINAL FLUID DURING THE PROCEDURE. THE PATIENT WAS SENT TO THE RECOVERY ROOM. THE PATIENT WAS MOVING THE EXTREMITIES AND DOING WELL. THERE WAS NO COMPLICATION DURING THE PROCEDURE. FLUOROSCOPY TIME WAS 32 SECONDS POST PROCEDURE NOTE THE PATIENT WILL DOCUMENT HIS PAIN LEVEL AND RESPONSE TO THIS PROCEDURE EVERY 30 MINUTES. THE PATIENT WILL BE SEEN IN A FOLLOW UP IN THE NEXT FEW WEEKS. FURTHER DETERMINATION FOR HIS CASE WILL BE DONE AT THE NEXT VISIT. INSTRUCTIONS WERE GIVEN, QUESTIONS WERE ANSWERED, AND THE PATIENT EXPRESSED UNDERSTANDING AND AGREED WITH THE PLAN. I, MAINOR CASEY, DOCUMENTED THE ABOVE INFORMATION ACTING A SCRIBE FOR DR. MARTÍNEZ. I HAVE REVIEWED THE ABOVE DOCUMENT, WRITTEN BY MAINOR CASTAÑEDAIBSen AND I VERIFY THAT IT IS ACCURATE DIAGNOSTIC IMAGING [facility] FACET BLOCK (PAIN)[id number] PROCEDURE CODES 94293 INJ PARAVERT F JNT L/S 1 LEV, [place]: [place] [address] INJ PARAVERT F JNT L/S 2 LEV, MODIFIERS: RT 6045F RADXPS IN END [id number] PXD DISPOSITION & COMMUNICATION FOLLOW UP 3 WEEKS ELECTRONICALLY SIGNED BY MARK MARTÍNEZ MD ON 03/28/2017 AT 12:54 PM EDT DISCLAIMER : THIS IS A VISIT SUMMARY EXTRACTED FROM THE [employer] CHART. IT IS NOT A COPY OF THE [employer] PROGRESS NOTE. MTDD
== END ==
LOC: M PAIN 10:00
PROVIDERS: ATTEND Anesthesiology
DX: G89.29 Other chronic pain (principal); M47.816 Spondylosis without myelopathy or radiculopathy, lumbar region; M47.817 Spondylosis without myelopathy or radiculopathy, lumbosacral region; M05.79 Rheumatoid arthritis with rheumatoid factor of multiple sites without organ or systems involvement; E84.9 Cystic fibrosis, unspecified; Z79.899 Other long term (current) drug therapy; Z88.8 Allergy status to other drugs, medicaments and biological substances
CPT/HCPCS: 64493; 64494; Q9967

== ENCOUNTER → 2017-05-27 | Outpatient (CLI) | payer OTHER ==
[~2017-05-27] MED LIST changes: -BUPIVACAINE HCL 0.25% 30 ML VIAL As Ordered ONE; -ISOVUE-M 300 61% 15ML VIAL (Q9967) As Ordered ONE; -LIDOCAINE 1% SDV INJ 30 ML VIAL As Ordered ONE
--- NOTE | 2017-05-27 19:35 | REP ---
Chest two views HISTORY: Cystic fibrosis Comparison: 11/19/2016 Interstitial and nodular densities are present in the upper lobes. The heart is normal in size. The pulmonary vasculature is normal in appearance. The bony structure is intact. IMPRESSION: Findings consistent with cystic fibrosis unchanged compared to the previous study. Signed by Darryl Joy MD 05/27/2017 07:26 P
== END ==
LOC: M RAD 19:07
PROVIDERS: ATTEND Internal Medicine Critical Care Medicine
DX: E84.9 Cystic fibrosis, unspecified (principal)

== ENCOUNTER → 2017-07-26 | Outpatient (CLI) | payer OTHER | LOC: M RAD 13:57 | DX: E84.9 Cystic fibrosis, unspecified (principal); R07.1 Chest pain on breathing | CPT/HCPCS: 71046 ==

== ENCOUNTER → 2017-11-09 | Outpatient (REF) | payer OTHER ==
[2017-11-09 19:24] LABS: APPEARANCE, URINE CLOUDY (CLEAR); BACTERIA, URINE AUTO 2+ (NEGATIVE); BILIRUBIN, URINE AUTO NEGATIVE (NEGATIVE); BLOOD, URINE BLOOD 1+ (NEGATIVE); COLOR, URINE YELLOW (YELLOW); GLUCOSE, URINE (UA) AUTO NEGATIVE (NEGATIVE); KETONE, URINE AUTO NEGATIVE (NEGATIVE); LEUKOCYTE ESTERASE, URINE AUTO 3+ (NEGATIVE); MUCUS, URINE SMALL (NEGATIVE); NITRITE, URINE AUTO NEGATIVE (NEGATIVE); PROTEIN, URINE AUTO NEGATIVE (NEGATIVE); RBC, URINE AUTO 9 /HPF (0-3); SPECIFIC GRAVITY URINE AUTO 1.005 (1.002-1.035); SQUAMOUS EPITHELIAL CELL UR AU 10 /HPF (0-6); TRANSITIONAL EPITHELIAL AUTO <1 /HPF; UROBILINOGEN, URINE AUTO 0.2 mg/dL (0.0-2.0); WBC, URINE AUTO TNTC /HPF (0-3)
== END ==
LOC: M LAB REF 18:30
DX: M54.5 Low back pain (principal)

== ENCOUNTER → 2017-11-10 | Outpatient (CLI) | payer OTHER ==
[2017-11-10 15:37] LABS: BASO % 0.2 % (0.0-1.0); EOS # 0.1 10^3/uL (0.0-0.50); HEMATOCRIT 36.4 % (36.0-47.0); HEMOGLOBIN 12.2 g/dl (12.0-15.5); IMMATURE GRANULOCYTE % 0.3 % (0-3.0); LYMPH # 1.6 10^3/uL (1.5-6.5); MEAN CORPUSCULAR HEMOGLOBIN 29.5 pg (27.0-33.0); MEAN CORPUSCULAR HGB CONC 33.5 g/dl (32.0-36.5); MEAN CORPUSCULAR VOLUME 88.1 fl (80.0-96.0); MONO # 0.5 10^3/uL (0.0-0.8); MONO % 5.8 % (0.0-5.0); NEUTROPHILS # 6.7 10^3/uL (1.8-7.7); NEUTROPHILS % 74.7 % (36.0-66.0); PLATELET COUNT, AUTOMATED 396 10^3/uL (150-450); RED BLOOD COUNT 4.13 10^6/uL (4.00-5.40); RED CELL DISTRIBUTION WIDTH 13.2 % (11.5-14.5)
[2017-11-10 15:55] LABS: ANION GAP 7 MEQ/L (8-16); BLOOD UREA NITROGEN 7 MG/DL (7-18); CALCIUM LEVEL 8.9 MG/DL (8.5-10.1); CARBON DIOXIDE LEVEL 27 MEQ/L (21-32); CHLORIDE LEVEL 106 MEQ/L (98-107); CREATININE FOR GFR 0.47 MG/DL (0.55-1.30); GLOMERULAR FILTRATION RATE > 60.0 (>60); GLUCOSE, FASTING 110 MG/DL (70-100); SODIUM LEVEL 140 MEQ/L (136-145)
== END ==
LOC: M RAD 14:30
DX: N20.1 Calculus of ureter (principal)
CPT/HCPCS: 76775

== ENCOUNTER 2018-03-28 10:28 | Outpatient (CLI) | payer OTHER | END 2018-03-28 13:45 | disposition home or self-care (01) | LOC: M LDO 10:28 | DX: O47.03 False labor before 37 completed weeks of gestation, third trimester (principal); Z3A.30 30 weeks gestation of pregnancy | CPT/HCPCS: 59025 ==

== ENCOUNTER → 2018-03-31 | Outpatient (CLI) | payer OTHER ==
[2018-03-31 09:16] LABS: GLUCOSE, FASTING 63 MG/DL (LESS THAN 95)
[2018-03-31 09:30] LABS: 1 HR GLUCOSE 136 MG/DL (LESS THAN 180)
[2018-03-31 10:21] LABS: 2 HR GLUCOSE 146 MG/DL (LESS THAN 155)
[2018-03-31 11:22] LABS: 3 HR GLUCOSE 136 MG/DL (LESS THAN 140)
== END ==
LOC: M LAB 07:26
DX: R73.09 Other abnormal glucose (principal)
CPT/HCPCS: 82951

== ENCOUNTER → 2018-04-25 | Outpatient (REF) | payer OTHER ==
[2018-04-25 13:23] LABS: BASO # 0.1 10^3/uL (0.0-0.2); BASO % 0.6 % (0.0-1.0); EOS # 0.4 10^3/uL (0.0-0.50); EOS % 3.9 % (0.0-3.0); HEMATOCRIT 29.6 % (36.0-47.0); HEMOGLOBIN 9.7 g/dl (12.0-15.5); IMMATURE GRANULOCYTE % 0.6 % (0-3.0); LYMPH # 2.2 10^3/uL (1.5-6.5); LYMPH % 23.1 % (24.0-44.0); MEAN CORPUSCULAR HEMOGLOBIN 28.8 pg (27.0-33.0); MEAN CORPUSCULAR HGB CONC 32.8 g/dl (32.0-36.5); MEAN CORPUSCULAR VOLUME 87.8 fl (80.0-96.0); MONO # 0.8 10^3/uL (0.0-0.8); NEUTROPHILS % 63.8 % (36.0-66.0); PLATELET COUNT, AUTOMATED 251 10^3/uL (150-450); RED BLOOD COUNT 3.37 10^6/uL (4.00-5.40); RED CELL DISTRIBUTION WIDTH 12.9 % (11.5-14.5); WHITE BLOOD COUNT 9.4 10^3/uL (4.0-10.0)
[2018-04-25 13:55] LABS: ALBUMIN 2.2 GM/DL (3.2-5.2); ALBUMIN/GLOBULIN RATIO 0.59 (1.00-1.93); ALKALINE PHOSPHATASE 114 U/L (45-117); ALT/SGPT 8 U/L (12-78); ANION GAP 7 MEQ/L (8-16); AST/SGOT 14 U/L (7-37); BILIRUBIN,TOTAL 0.3 MG/DL (0.2-1.0); BLOOD UREA NITROGEN 9 MG/DL (7-18); CALCIUM LEVEL 7.9 MG/DL (8.5-10.1); CARBON DIOXIDE LEVEL 23 MEQ/L (21-32); CHLORIDE LEVEL 109 MEQ/L (98-107); CREATININE FOR GFR 0.44 MG/DL (0.55-1.30); GLOMERULAR FILTRATION RATE > 60.0 (>60); GLUCOSE, FASTING 92 MG/DL (70-100); POTASSIUM SERUM 3.6 MEQ/L (3.5-5.1); SODIUM LEVEL 139 MEQ/L (136-145); TOTAL PROTEIN 5.9 GM/DL (6.4-8.2)
== END ==
LOC: M LAB REF 12:10
DX: E84.0 Cystic fibrosis with pulmonary manifestations (principal)

== ENCOUNTER 2018-05-22 21:29 | Emergency (ER) | payer OTHER ==
[2018-05-22] MEDS ORDERED: METAL LOCK LOOP XX (23:55)
== END 2018-05-23 01:16 | disposition home or self-care (01) ==
LOC: M ED 05-23 01:16
DX: O90.89 Other complications of the puerperium, not elsewhere classified (principal); R10.2 Pelvic and perineal pain; M06.9 Rheumatoid arthritis, unspecified; O99.285 Endocrine, nutritional and metabolic diseases complicating the puerperium; E84.9 Cystic fibrosis, unspecified; Z87.442 Personal history of urinary calculi; Z79.899 Other long term (current) drug therapy; Z88.8 Allergy status to other drugs, medicaments and biological substances
CPT/HCPCS: 76856

== ENCOUNTER 2018-07-31 21:09 | Day surgery (SDC) | payer OTHER ==
[~2018-07-31] VITALS: Ht 157.5 cm; Wt 54.5 kg
[~2018-07-31 21:09] MED LIST changes: +ACET500T15 PO; -ACET50TAOT PO; +AZIT500T2 PO; +COLA100C5 PO; +CYCL5TAB PO; -DRIS50002 PO; +DRIS50003 PO; +MIRA3350 PO; -PANT40TA2 PO; +PANT40TA3 PO; +PRENTAB9 PO; +VITA100054 PO; +ZANTTAB PO; +[UNRECOGNIZED DRUG - CODE] PO
[2018-07-31 22:14] LABS: BASO % 0.3 % (0.0-1.0); EOS % 0.1 % (0.0-3.0); HEMATOCRIT 36.5 % (36.0-47.0); HEMOGLOBIN 11.3 g/dl (12.0-15.5); LYMPH # 0.9 10^3/uL (1.5-6.5); MEAN CORPUSCULAR HEMOGLOBIN 25.5 pg (27.0-33.0); MEAN CORPUSCULAR VOLUME 82.2 fl (80.0-96.0); MONO # 0.7 10^3/uL (0.0-0.8); MONO % 4.5 % (0.0-5.0); NEUTROPHILS # 13.8 10^3/uL (1.8-7.7); NEUTROPHILS % 88.7 % (36.0-66.0); PLATELET COUNT, AUTOMATED 512 10^3/uL (150-450); RED BLOOD COUNT 4.44 10^6/uL (4.00-5.40); WHITE BLOOD COUNT 15.5 10^3/uL (4.0-10.0)
[2018-07-31] MEDS ORDERED: ONDANSETRON 4MG/2ML VIAL (J2405) IV ONE (22:15)
[2018-07-31] MEDS ORDERED: KETOROLAC 30 MG/ML VIAL (J1885) IV ONE (22:15)
[2018-07-31] MEDS ORDERED: NS 1,000 ML IV ONE (22:15)
[2018-07-31 22:23] LABS: HCG, SERUM QUALITATIVE NEGATIVE (NEGATIVE)
[2018-07-31 22:41] LABS: ALBUMIN 3.8 GM/DL (3.2-5.2); ALT/SGPT 25 U/L (12-78); BILIRUBIN,DIRECT < 0.1 MG/DL (0.0-0.2); BILIRUBIN,TOTAL 0.3 MG/DL (0.2-1.0); BLOOD UREA NITROGEN 19 MG/DL (7-18); CALCIUM LEVEL 8.7 MG/DL (8.5-10.1); CARBON DIOXIDE LEVEL 26 MEQ/L (21-32); CHLORIDE LEVEL 103 MEQ/L (98-107); CREATININE FOR GFR 0.85 MG/DL (0.55-1.30); GLOMERULAR FILTRATION RATE > 60.0 (>60); GLUCOSE, FASTING 125 MG/DL (70-100); LIPASE 23 U/L (73-393); POTASSIUM SERUM 4.4 MEQ/L (3.5-5.1); SODIUM LEVEL 138 MEQ/L (136-145); TOTAL PROTEIN 8.5 GM/DL (6.4-8.2)
[2018-07-31] MEDS ORDERED: cefTRIAXone SOD 1 GM in D5W MINI-BAG PLUS 50 ML IV ONE (22:45)
[2018-07-31] MEDS ORDERED: MORPHINE 4 MG/ML 1ML VIAL/SYRINGE (J2270) IV ONE (22:45)
--- NOTE | 2018-07-31 23:35 | REPVR ---
EXAM: CT Abdomen and Pelvis Without Contrast EXAM DATE/TIME: 07/31/2018 10:57 PM CLINICAL HISTORY: 23 years old, female; Pain; Abdominal pain; Flank; Right; Additional info: R flank pain TECHNIQUE: Axial computed tomography images of the abdomen and pelvis without contrast. All CT scans at this facility use at least one of these dose optimization techniques: automated exposure control; mA and/or kV adjustment per patient size (includes targeted exams where dose is matched to clinical indication); or iterative reconstruction. Coronal and sagittal reformatted images were created and reviewed. COMPARISON: CT ABD PELVIS WITH CONTRAST 04/02/2015 11:24 AM FINDINGS: Lower thorax: No acute findings. ABDOMEN: Liver: Normal. No mass. Gallbladder and bile ducts: Cholelithiasis. Pancreas: Normal. No ductal dilation. Spleen: Normal. No splenomegaly. Adrenals: Normal. No mass. Kidneys and ureters: There is a 11 x 12 mm. obstructive ureteral calculus located in the right UPJ resulting in moderate proximal dilatation of the renal pelvis and calyces. There is mild perinephric stranding. No urinoma demonstrated. Punctate nonobstructive calculi left kidney. Stomach and bowel: Normal. No obstruction. No mucosal thickening. Appendix: No evidence of appendicitis. PELVIS: Bladder: Unremarkable as visualized. Reproductive: Unremarkable as visualized. ABDOMEN and PELVIS: Intraperitoneal space: Normal. No free air. No significant fluid collection. Bones/joints: No acute fracture. No dislocation. Soft tissues: Unremarkable. Vasculature: Normal. No abdominal aortic aneurysm. Lymph nodes: Normal. No enlarged lymph nodes. IMPRESSION: 1. Cholelithiasis. 2. There is a 11 x 12 mm. obstructive ureteral calculus located in the right UPJ resulting in moderate proximal dilatation of the renal pelvis and calyces. There is mild perinephric stranding. No urinoma demonstrated. Electronically signed by: Rodrigo Miller On 07/31/2018 23:35:17 PM
[2018-08-01] VITALS (11 sets, daily range): BP systolic 98–127; BP diastolic 57–91
[2018-08-01] MEDS ORDERED: MONTELUKAST 10 MG TAB PO ONE
[2018-08-01] MEDS: NS 1,000 ML IV SCH ×2 (00:03→18:51)
[2018-08-01] MEDS ORDERED: MORPHINE 4 MG/ML 1ML VIAL/SYRINGE (J2270) IV PRN (00:15)
[2018-08-01] MEDS ORDERED: ALBUTEROL 90 MCG/ACT 8GM HFA INHALER INH PRN (00:15)
[2018-08-01] MEDS ORDERED: VENTAER INH (00:30)
[2018-08-01] MEDS ORDERED: [UNRECOGNIZED DRUG - CODE] PO (00:30)
[2018-08-01] MEDS ORDERED: AZIT500T2 PO (00:30)
[2018-08-01] MEDS ORDERED: CREO3600 PO (00:30)
[2018-08-01] MEDS ORDERED: IBUP-1022 PO (00:30)
[2018-08-01] MEDS ORDERED: IBUP200C25 PO (00:30)
[2018-08-01] MEDS ORDERED: PULM1SOL INH (00:30)
[2018-08-01] MEDS: PERCOCET 5MG/325MG TAB PO PRN ×3 (02:03→11:22)
[2018-08-01] MEDS: ONDANSETRON 4MG/2ML VIAL (J2405) IV PRN ×2 (06:04→12:07)
[2018-08-01] MEDS: DOCUSATE SODIUM 100 MG CAP PO SCH ×2 (09:15→20:58)
[2018-08-01] MEDS: KETOROLAC 30 MG/ML VIAL (J1885) IV SCH ×3 (10:02→23:38)
[2018-08-01 10:56] LABS: HEMATOCRIT 35.8 % (36.0-47.0); HEMOGLOBIN 11.2 g/dl (12.0-15.5); MEAN CORPUSCULAR HEMOGLOBIN 25.7 pg (27.0-33.0); MEAN CORPUSCULAR HGB CONC 31.3 g/dl (32.0-36.5); MEAN CORPUSCULAR VOLUME 82.1 fl (80.0-96.0); PLATELET COUNT, AUTOMATED 353 10^3/uL (150-450); RED BLOOD COUNT 4.36 10^6/uL (4.00-5.40); WHITE BLOOD COUNT 14.7 10^3/uL (4.0-10.0)
[2018-08-01] MEDS ORDERED: CONRAY-60 60% 50ML VIAL (Q9961) As Ordered ONE (11:19)
[2018-08-01 11:33] LABS: BLOOD UREA NITROGEN 17 MG/DL (7-18); CALCIUM LEVEL 7.7 MG/DL (8.5-10.1); CARBON DIOXIDE LEVEL 27 MEQ/L (21-32); CHLORIDE LEVEL 105 MEQ/L (98-107); GLOMERULAR FILTRATION RATE > 60.0 (>60); GLUCOSE, FASTING 92 MG/DL (70-100); POTASSIUM SERUM 3.3 MEQ/L (3.5-5.1); SODIUM LEVEL 139 MEQ/L (136-145)
[2018-08-01] MEDS ORDERED: LevoFLOXacin(LEVAQUIN)500 MG/100 ML BAG (J1956) As Ordered ONE (16:40)
--- NOTE | 2018-08-01 16:41 | SMCUROLCON ---
Urology Consultation General Date of Consultation 08/01/18 Reason For Consultation This patient is seen for Kidney Stone. History of Present Illness The 23 y/o F w/ a PMH significant for cystic fibrosis and Rheumatoid arthritis, who presented to the ER w/ acute onset right flank pain. A CT A/P was done in [facility] ER and was notable for moderate right hydronephrosis due to a 12mm obstructing right ureteropelvic junction (UPJ) stone. Her UA was also notable for 115 WBCs/hpf. She denies dysuria or fevers. Since admission last night she has continued to have persistent moderate to severe right flank pain. She has never passed kidney stones or had kidney stone surgery previously. Past Medical History Medical History see [facility] Surgical Hstory none Medications Current Medications Current Medications Acetaminophen (Tylenol Tab) 650 mg Q4HP PRN PO MILD PAIN or TEMP > 101; Start 08/01/18 at 00:15 Albuterol Sulfate (Proventil, Ventolin Hfa) 2 puff Q4HP PRN INH SHORTNESS OF BREATH; Start 08/01/18 at 00:15 Docusate Sodium (Colace) 100 mg BID PO Last administered on 08/01/18at 09:15; Start 08/01/18 at 09:00 Home Med (Med Rec Complete!) ASDIRECTED XX ; Start 08/01/18 at 00:30; Stop 08/01/18 at 00:39; Status DC Ketorolac Tromethamine (ToRADol) 15 mg Q6H IV Last administered on 08/01/18at 10:02; Start 08/01/18 at 10:00; Stop 08/06/18 at 09:59 Montelukast Sodium (Singulair) 10 mg QHS PO ; Start 08/01/18 at 21:00 Morphine Sulfate (Morphine Sulfate Inj) 2 mg Q3HP PRN IV SEVERE PAIN (PS 8-10) Last administered on 08/01/18at 06:05; Start 08/01/18 at 00:15 Ondansetron HCl (ZOFRAN INJection) 4 mg Q6HP PRN IV NAUSEA OR VOMITING Last administered on 08/01/18at 12:07; Start 08/01/18 at 00:15 Oxycodone/ Acetaminophen (Percocet 5mg/ 325mg Tablet) 2 tab Q4HP PRN PO MODERATE/SEVERE PAIN (PS 5-10) Last administered on 08/01/18at 11:22; Start 08/01/18 at 00:15 Sodium Chloride 1,000 ml @ 75 mls/hr [id number] IV ; Start 08/01/18 at 00:03 Allergies Allergies: Coded Allergies: Ketorolac Tromethamine (Unverified Adverse Reaction, Mild, VOMIT, 06/30/15) Review of Systems General: Reports: Normal Appetite; Denies: Fatigue, Malaise Constitutional: Denies: Fever, Chills, Sweats, Weakness, Malaise, Other Skin: Denies: Rash, Lesions, Breakdown, Nail Changes Pulmonary: Denies: Dyspnea, Cough Cardiovascular: Denies Chest Pain, Denies Palpitations Genitourinary: Denies: Dysuria, Frequency, Incontinence, Hematuria Musculoskeletal: Reports: Back Pain (right flank pain) Psych: Reports: Mood Normal; Denies: Anxiety, Depression Physical Examination General Exam: Cooperative, No Acute Distress Chest Exam: Normal air movement Heart Exam: Rate Normal, Regular Rhythm Abdomen Exam: Soft Skin Exam: Nl turgor and temperature Neuro Exam: Normal Speech Psych Exam: Mental status NL, Mood NL Vital Signs/I&O Vital Signs Date Time Temp Pulse Resp B/P (MAP) Pulse Ox O2 Delivery O2 Flow Rate FiO2 08/01/18 13:00 18 08/01/18 13:00 97.0 111 103/59 (74) 94 08/01/18 01:25 Room Air I&O- Last 24 Hours up to 6 AM 08/01/18 06:00 Intake Total 50 ml Balance 50 ml Laboratory Data 24H Labs Laboratory Tests 2 07/31/18 22:00: Immature Granulocyte % (Auto) 0.4, White Blood Count 15.5H, Red Blood Count 4.44, Hemoglobin 11.3L, Hematocrit 36.5, Mean Corpuscular Volume 82.2, Mean Corpuscular Hemoglobin 25.5L, Mean Corpuscular Hemoglobin Concent 31.0L, Red Cell Distribution Width 14.6H, Platelet Count 512H, Neutrophils (%) (Auto) 88.7H, Lymphocytes (%) (Auto) 6.0L, Monocytes (%) (Auto) 4.5, Eosinophils (%) (Auto) 0.1, Basophils (%) (Auto) 0.3, Neutrophils # (Auto) 13.8H, Lymphocytes # (Auto) 0.9L, Monocytes # (Auto) 0.7, Eosinophils # (Auto) 0.0, Basophils # (Auto) 0.0, Nucleated Red Blood Cells % (auto) 0.0, Urine Color STRAW, Urine Appearance HAZY, Urine pH 5.0, Urine Specific [place] 1.013, Urine Protein 1+H, Urine Glucose (UA) NEGATIVE, Urine Ketones NEGATIVE, Urine Blood NEGATIVE, Urine Nitrite NEGATIVE, Urine Bilirubin NEGATIVE, Urine Urobilinogen 0.2, Urine Le ukocyte Esterase 2+H, Urine WBC (Auto) 115H, Urine RBC (Auto) 11H, Urine Hyaline Casts (Auto) 0, Urine Bacteria (Auto) 1+H, Urine Squamous Epithelial Cells 1, Urine Mucus (Auto) SMALL, Urine Sperm (Auto) , Anion Gap 9, Glomerular Filtration Rate > 60.0, Calcium Level 8.7, Aspartate Amino Transf (AST/SGOT) 31, Alanine Aminotransferase (ALT/SGPT) 25, Alkaline Phosphatase 168H, Total Bilirubin 0.3, Direct Bilirubin < 0.1, Total Protein 8.5H, Albumin 3.8, Albumin/Globulin Ratio 0.81L, Lipase 23L, Human Chorionic Gonadotropin, Qual NEGATIVE 08/01/18 10:34: Nucleated Red Blood Cells % (auto) 0.0, Anion Gap 7L, Glomerular Filtration Rate > 60.0, Calcium Level 7.7L, Blood Urea Nitrogen 17, Creatinine 1.10, Sodium Level 139, Potassium Level 3.3#L, Chloride Level 105, Carbon Dioxide Level 27 CBC/BMP Laboratory Tests 07/31/18 22:00 Red Blood Count 4.44, Mean Corpuscular Volume 82.2, Mean Corpuscular Hemoglobin 25.5 L, Mean Corpuscular Hemoglobin Concent 31.0 L, Red Cell Distribution Width 14.6 H, Neutrophils (%) (Auto) 88.7 H, Lymphocytes (%) (Auto) 6.0 L, Monocytes (%) (Auto) 4.5, Eosinophils (%) (Auto) 0.1, Basophils (%) (Auto) 0.3, Neutrophils # (Auto) 13.8 H, Lymphocytes # (Auto) 0.9 L, Monocytes # (Auto) 0.7, Eosinophils # (Auto) 0.0, Basophils # (Auto) 0.0 08/01/18 10:34 Red Blood Count 4.36, Mean Corpuscular Volume 82.1, Mean Corpuscular Hemoglobin 25.7 L, Mean Corpuscular Hemoglobin Concent 31.3 L, Red Cell Distribution Width 14.6 H, Calcium Level 7.7 L Microbiology Microbiology 07/31/18 Urine Culture, Received Pending Assessment This is a 23 y/o F w/ a 12mm obstructing right UPJ stone and a likely UTI. Urine culture is still pending. She received a dose of rocephin last night. I recommended that we take her to the OR for cystoscopy and right ureteral stent placement. After a discussion of the risks and benefits of the procedure, informed consent was signed. Plan - informed consent signed for cystoscopy, right ureteral stent placement - levaquin 500mg PO OCOR - NPO - if pain better postop, ok for discharge home on PO abx x 10 days FRANCE COWART MD Aug 01, 2018 16:41
[2018-08-01] MEDS ORDERED: LevoFLOXacin IV 500 MG in APPROPRIATE DILUENT 1 EA IV ONE (16:45)
[2018-08-01] MEDS ORDERED: LIDOCAINE 2% 5ML JELLY UROJET As Ordered ONE (16:48)
[2018-08-01] MEDS ORDERED: MIDAZOLAM INJ 2 MG/2 ML VIAL (J2250) As Ordered ONE (16:55)
[2018-08-01] MEDS ORDERED: PROPOFOL 200 MG/20 ML VIAL As Ordered ONE (16:55)
[2018-08-01] MEDS ORDERED: fentaNYL 100 MCG/2 ML INJECTION (J3010) As Ordered ONE (16:55)
[2018-08-01] MEDS ORDERED: ONDANSETRON 4MG/2ML VIAL (J2405) As Ordered ONE (16:55)
[2018-08-01] MEDS ORDERED: PHENYLephrine HCL 500 MCG/5 ML (100MCG/ML) SYRINGE (J2370) As Ordered ONE (17:04)
[2018-08-01] MEDS ORDERED: ONDANSETRON 4MG/2ML VIAL (J2405) IV PRN (17:45)
[2018-08-01] MEDS ORDERED: LR 1,000 ML IV SCH (17:45)
[2018-08-01] MEDS ORDERED: NORCO, ANEXSIA 5/325MG TABLET (HYDROcodone/ACETAMINOPHEN) PO PRN (17:45)
[2018-08-01] MEDS ORDERED: fentaNYL 100 MCG/2 ML INJECTION (J3010) IV PRN (17:45)
--- NOTE | 2018-08-01 19:48 | REP ---
RETROGRADE PYELOGRAM, ONE VIEW: HISTORY: Stent placement. A single portable radiograph was obtained with a C-ARM. A right ureteral stent is present. Fluoroscopic time was 28 seconds. IMPRESSION:The patient is status-post right ureteral stent placement. Electronically Signed by Darryl Joy MD 08/01/2018 07:51 P
[2018-08-01] MEDS: ACETAMINOPHEN TAB 650MG DOSE (2X325MG) PO PRN (20:58)
[2018-08-01] MEDS ORDERED: MONTELUKAST 10 MG TAB PO SCH (21:00)
[2018-08-02] VITALS: BP 115/65
[2018-08-02] MEDS: KETOROLAC 30 MG/ML VIAL (J1885) IV SCH ×2 (04:46→10:30)
[2018-08-02 05:00] VITALS: BP 120/61
[2018-08-02] MEDS: ACETAMINOPHEN TAB 650MG DOSE (2X325MG) PO PRN (05:23)
[2018-08-02 06:59] LABS: HEMATOCRIT 31.4 % (36.0-47.0); HEMOGLOBIN 9.8 g/dl (12.0-15.5); MEAN CORPUSCULAR HEMOGLOBIN 25.5 pg (27.0-33.0); MEAN CORPUSCULAR HGB CONC 31.2 g/dl (32.0-36.5); MEAN CORPUSCULAR VOLUME 81.8 fl (80.0-96.0); PLATELET COUNT, AUTOMATED 336 10^3/uL (150-450); RED BLOOD COUNT 3.84 10^6/uL (4.00-5.40); WHITE BLOOD COUNT 13.4 10^3/uL (4.0-10.0)
[2018-08-02 07:22] LABS: BLOOD UREA NITROGEN 15 MG/DL (7-18); CALCIUM LEVEL 7.7 MG/DL (8.5-10.1); CARBON DIOXIDE LEVEL 24 MEQ/L (21-32); CHLORIDE LEVEL 110 MEQ/L (98-107); CREATININE FOR GFR 0.75 MG/DL (0.55-1.30); GLOMERULAR FILTRATION RATE > 60.0 (>60); GLUCOSE, FASTING 133 MG/DL (70-100); SODIUM LEVEL 141 MEQ/L (136-145)
[2018-08-02] MEDS ORDERED: POTASSIUM CHLORIDE 10 MEQ SR TABLET PO ONE (07:45)
[2018-08-02] MEDS ORDERED: CREO3600 PO (07:54)
[2018-08-02 08:00] VITALS: BP 115/72
[2018-08-02] MEDS: DOCUSATE SODIUM 100 MG CAP PO SCH (08:39)
--- NOTE | 2018-08-02 08:59 | IPNPDOC ---
Assessment/Plan Date Seen The patient was seen on 08/02/18. Patient Summary This is a 23 y/o F w/ a 12mm obstructing right UPJ stone and a UTI, POD1 s/p cysto w/ right ureteral stent placement. Her urine culture is still pending. I called the micro lab and her urine culture is growing > 100,000 of a GNR. Sensitivities are still pending. She feels much better today. She has remained afebrile. Plan/VTE VTE Prophylaxis Ordered?: Yes VTE Exclusion Mechanical Proph: N/A:VTE Prophy Ordered Plan/Urinary Catheter Urinary Catheter: D/C Zaragoza Plan - discontinue catheter - discontinue IVF - toradol for pain - regular diet - will discharge home today on cipro x 10 days - will plan for f/u in 1-2 wks to arrange surgery to remove her stone Subjective Review oF Systems Chief Complaint The patient is a 23-year-old female admitted with a reason for visit of Kidney Stone. Events since Last Encounter No acute events o/n. Right flank pain much improved. No n/v. No f/c/ns. Objective Physical Examination General Exam: Alert, Cooperative, No Acute Distress ABDOMEN EXAM: Soft; No: Tenderness Skin Exam: Nl turgor and temperature Neuro Exam: Normal Speech Psych Exam: Mental status NL, Mood NL Other physical findings catheter draining clear urine Vital Signs/I&O Vital Signs Date Time Temp Pulse Resp B/P (MAP) Pulse Ox O2 Delivery O2 Flow Rate FiO2 08/02/18 05:00 99.4 106 20 120/61 (80) 95 08/01/18 17:50 Room Air I&O- Last 24 Hours up to 6 AM 08/02/18 06:00 Intake Total 1657 ml Output Total 2075 ml Balance -418 ml Laboratory Data Labs 24H Laboratory Tests 2 08/01/18 10:34: Nucleated Red Blood Cells % (auto) 0.0, Anion Gap 7L, Glomerular Filtration Rate > 60.0, Blood Urea Nitrogen 17, Creatinine 1.10, Sodium Level 139, Potassium Level 3.3#L, Chloride Level 105, Carbon Dioxide Level 27, Calcium Level 7.7L 08/02/18 06:33: Nucleated Red Blood Cells % (auto) 0.0, Anion Gap 7L, Glomerular Filtration Rate > 60.0, Blood Urea Nitrogen 15, Creatinine 0.75, Sodium Level 141, Potassium Level 3.0L, Chloride Level 110H, Carbon Dioxide Level 24, Calcium Level 7.7L CBC/BMP Laboratory Tests 08/01/18 10:34 Red Blood Count 4.36, Mean Corpuscular Volume 82.1, Mean Corpuscular Hemoglobin 25.7 L, Mean Corpuscular Hemoglobin Concent 31.3 L, Red Cell Distribution Width 14.6 H, Calcium Level 7.7 L 08/02/18 06:33 Red Blood Count 3.84 L, Mean Corpuscular Volume 81.8, Mean Corpuscular Hemo globin 25.5 L, Mean Corpuscular Hemoglobin Concent 31.2 L, Red Cell Distribution Width 14.9 H, Calcium Level 7.7 L Microbiology Microbiology 08/01/18 Urine Culture, Received Pending 07/31/18 Urine Culture, Received Pending FRANCE COWART MD Aug 02, 2018 08:59
[2018-08-02] MEDS ORDERED: predniSONE 20 MG TAB PO SCH (09:00)
[2018-08-02] MEDS ORDERED: PRED20TA PO (11:27)
[2018-08-02] MEDS ORDERED: APAP325T4 PO (11:27)
--- NOTE | 2018-08-02 12:23 | RO ---
DATE OF PROCEDURE: 08/01/2018 PREPROCEDURE DIAGNOSIS: Right kidney stone, urinary tract infection. POSTPROCEDURE DIAGNOSIS: Right kidney stone, urinary tract infection. PROCEDURE: Cystoscopy, right ureteral stent placement. SURGEON: Dr. Daniel Valladares SEISMOGRAPH SUPERVISOR: None. ANESTHESIA: Monitored anesthesia care (MAC). OPERATIVE INDICATIONS: This is a 23-year-old female who was found to have 12 mm obstructing right uteropelvic junction stone and a findings on urinalysis concerning for urinary tract infection. She was brought to the operating room today for the above-listed procedure. DESCRIPTION OF PROCEDURE: Patient was brought to the operating room and monitored anesthesia care (MAC) was administered. Prophylactic antibiotics were infused. She was then placed in the dorsal lithotomy position and prepped and draped in the usual sterile fashion. A rigid cystoscope was then inserted into the urethral meatus and advanced into the bladder. Once inside the bladder, a 5-Cypriot open end ureteral catheter was advanced at the right collecting system and passed the stone. At this point of note she had a hydronephrotic drip from the ureteral catheter. I then aspirated out purulent appearing fluid from the right renal pelvis to be sent for urine culture. Once that was done, a wire was advanced up the right collecting system and then the ureteral catheter was removed. Once that was done, the wire was utilized to advance a #7-Cypriot x 22-32 cm JJ ureteral stent up to the right collecting system. The wire was then removed and there was adequate curls of the right renal pelvis and in the bladder. Once the stent was placed a #16-Cypriot Zaragoza catheter was drained to the bladder and the balloon was filled with 10 mL of sterile water. The catheter was connected to the gravity drainage and concluding procedure. The patient was then taken out of dorsal lithotomy position, awakened from anesthesia, transported to recovery room in stable condition. ESTIMATED BLOOD LOSS: 5 mL. COMPLICATIONS: None. SPECIMENS: Urine from right renal pelvis for culture. PLAN: The patient will be monitored overnight and assess for improvement in the morning. Assuming her white blood cell count goes down and she is afebrile overnight we will likely get her discharged tomorrow and remove her catheter. We will keep her on antibiotics for 10 days and we will have her followup in the clinic in a few or two to get her set up for surgery for her kidney stone. ALAN
== END 2018-08-02 12:25 | disposition home or self-care (01) ==
LOC: M ED 21:09 → M SDC 21:12 → M PED 08-01 01:36 → M SDC 08-02 12:25
PROVIDERS: ATTEND Urology
DX: N20.0 Calculus of kidney (principal); N39.0 Urinary tract infection, site not specified; E84.9 Cystic fibrosis, unspecified; M06.9 Rheumatoid arthritis, unspecified; Z88.8 Allergy status to other drugs, medicaments and biological substances
CPT/HCPCS: 36415; 52332; 74176; 74420; 80048; 80076; 81001; 83690; 84703; 85025; 85027; 87088; 87186; 93041; 96374; 96375; 96376; 99285; C1769; C2617; J0696; J1885; J1956; J2250; J2270; J2370; J2405; J3010; Q9961

== ENCOUNTER → 2018-09-26 | Outpatient (CLI) | payer OTHER ==
[~2018-09-26] MED LIST changes: +APAP325T4 PO; +BREO1INH INH; +IBUP-1022 PO; +IBUP200C25 PO; +MACR100C43 PO; +PRED-351 PO; -PRED10TA PO; +PRED20TA PO; +VENTAER INH; +[UNRECOGNIZED DRUG - CODE] PO
[2018-09-26 13:21] LABS: HEMATOCRIT 38.1 % (36.0-47.0); HEMOGLOBIN 11.7 g/dl (12.0-15.5); MEAN CORPUSCULAR HEMOGLOBIN 24.8 pg (27.0-33.0); MEAN CORPUSCULAR HGB CONC 30.7 g/dl (32.0-36.5); MEAN CORPUSCULAR VOLUME 80.9 fl (80.0-96.0); PLATELET COUNT, AUTOMATED 540 10^3/uL (150-450); RED BLOOD COUNT 4.71 10^6/uL (4.00-5.40); WHITE BLOOD COUNT 14.2 10^3/uL (4.0-10.0)
[2018-09-26 13:23] LABS: APPEARANCE, URINE CLOUDY (CLEAR); BACTERIA, URINE AUTO 1+ (NEGATIVE); BILIRUBIN, URINE AUTO NEGATIVE (NEGATIVE); BLOOD, URINE BLOOD 3+ (NEGATIVE); COLOR, URINE YELLOW (YELLOW); GLUCOSE, URINE (UA) AUTO NEGATIVE (NEGATIVE); KETONE, URINE AUTO NEGATIVE (NEGATIVE); LEUKOCYTE ESTERASE, URINE AUTO 3+ (NEGATIVE); MUCUS, URINE SMALL (NEGATIVE); NITRITE, URINE AUTO NEGATIVE (NEGATIVE); PROTEIN, URINE AUTO 2+ mg/dL (NEGATIVE); RBC, URINE AUTO TNTC /HPF (0-3); SPECIFIC GRAVITY URINE AUTO 1.013 (1.002-1.035); SQUAMOUS EPITHELIAL CELL UR AU 3 /HPF (0-6); UROBILINOGEN, URINE AUTO 0.2 mg/dL (0.0-2.0); WBC, URINE AUTO 40 /HPF (0-3)
[2018-09-26 13:29] LABS: INR 1.02; PROTHROMBIN TIME 13.5 SECONDS (12.1-14.4)
[2018-09-26 13:30] LABS: PARTIAL THROMBOPLASTIN TIME 29.4 SECONDS (25.4-37.6)
--- NOTE | 2018-09-26 13:36 | REP ---
CHEST, TWO VIEWS: Two views of the chest are performed. Comparison 07/26/2017. Once again there are chronic bilateral interstitial opacities with diffuse interstitial thickening primarily in the upper lobes. There is mild apical pleural thickening. The findings are stable and consistent with history of cystic fibrosis. No new superimposed acute infiltrate is seen. The heart and mediastinum are unremarkable and unchanged. Incidental note is made of a right renal stent. IMPRESSION: Chronic interstitial opacities bilaterally primarily in the upper lobes appear stable. No definite acute superimposed infiltrate. Electronically Signed by Clemente Nava MD 09/26/2018 03:30 P
[2018-09-26 13:40] LABS: BLOOD UREA NITROGEN 11 MG/DL (7-18); CALCIUM LEVEL 8.7 MG/DL (8.5-10.1); CARBON DIOXIDE LEVEL 26 MEQ/L (21-32); CHLORIDE LEVEL 106 MEQ/L (98-107); CREATININE FOR GFR 0.75 MG/DL (0.55-1.30); GLOMERULAR FILTRATION RATE > 60.0 (>60); GLUCOSE, FASTING 94 MG/DL (70-100); POTASSIUM SERUM 3.9 MEQ/L (3.5-5.1); SODIUM LEVEL 140 MEQ/L (136-145)
--- NOTE | 2018-09-26 15:24 | ECGEPIP ---
Stationary ECG Study [facility] Test Date: 2018-09-26 Pat Name: CHAY CASTRO Department: Room: - Gender: F [employer]: : 1995 Requested By: Ashu CAMPOS Order Number: [id number] Reading MD: Lian uAgust Measurements Intervals [place] Rate: 98 P: 25 NM: 126 QRS: 32 QRSD: 75 T: 30 QT: 333 QTc: 426 Interpretive Statements SINUS RHYTHM normal no prior Electronically Signed On 09-26-2018 15:24:05 EDT by Lian August
== END ==
LOC: M LAB 12:12
PROVIDERS: ATTEND Nurse Practitioner Family
DX: N20.0 Calculus of kidney (principal)

== ENCOUNTER 2018-10-06 07:33 | Day surgery (SDC) | payer OTHER ==
[~2018-10-06] VITALS: Ht 157.5 cm; Wt 53.5 kg
[~2018-10-06 07:33] MED LIST changes: +LIDOCAINE 1% MDV 20ML VIAL As Ordered ONE
[2018-10-06] MEDS ORDERED: LR 1,000 ML IV ONE (08:15)
[2018-10-06 08:22] LABS: URINE PREG TEST NEGATIVE (NEGATIVE)
[2018-10-06] MEDS ORDERED: LIDOCAINE 2% INJ 100 MG/5 ML SDV (FOR ANES.) As Ordered ONE (08:36)
[2018-10-06] MEDS ORDERED: ONDANSETRON 4MG/2ML VIAL (J2405) As Ordered ONE (08:36)
[2018-10-06] MEDS ORDERED: dexameTHASONE 4 MG/ML 1ML VIAL (J1100) As Ordered ONE (08:36)
[2018-10-06] MEDS ORDERED: PROPOFOL 200 MG/20 ML VIAL As Ordered ONE (08:36)
[2018-10-06] MEDS ORDERED: MIDAZOLAM INJ 2 MG/2 ML VIAL (J2250) As Ordered ONE (08:37)
[2018-10-06] MEDS ORDERED: fentaNYL 100 MCG/2 ML INJECTION (J3010) As Ordered ONE ×2 (08:37→11:46)
[2018-10-06] MEDS ORDERED: CONRAY-60 60% 50ML VIAL (Q9961) As Ordered ONE (09:49)
--- NOTE | 2018-10-06 11:24 | ROOPDOC ---
[facility] Report Of Operation Report of Operation DATE OF PROCEDURE: 10/06/18 PREPROCEDURE DIAGNOSES: Right renal pelvic stone. POSTPROCEDURE DIAGNOSES: Same. PROCEDURE: Cystoscopy, right ureteroscopy with laser lithotripsy, retrograde pyelogram, extraction of stone, insertion double-J stent. SURGEON: Endy Alaniz MD WASTE REMOVALIST: MD Jaclyn ANESTHESIA: Gen. LMA. ESTIMATED BLOOD LOSS: Approximately less than 10 mL. COMPLICATIONS: None. REMARKS: Drains 6 [place] multilength double-J stent. PROCEDURE NOTE: Patient was brought to the operating room and following administration of general anesthesia was placed in the dorsal lithotomy position and prepped and draped in the usual sterile fashion. A 22 [place] cystoscope was inserted with an obturator. A stent was seen from the right ureteral orifice, grasped with a forceps and brought out through the urethral meatus. A 038 guidewire was then placed through the stent and advanced to the renal pelvis under fluoroscopy guidance. A 10 [place] dual-lumen catheter was placed over the wire and advanced to the renal pelvis. A second Glidewire was then placed in the catheter was removed. A 35 cm ureteral access sheath was placed over the Glidewire and once good position was confirmed by fluoroscopy the Glidewire was removed. A flexible ureteroscope was then inserted under direct vision and advanced to the renal pelvis. A 1 cm stone was present in the renal pelvis. Laser lithotripsy was then performed utilizing a 200 holmium laser fiber. Laser lithotripsy was performed between 0.3 and 0.4 J at a rate between 20 and 30 pulses per second for a maximum wattage of 12 W. Total energy delivered was 3.73. Complete fragmentation of the stone was achieved. The laser fiber was then removed. Utilizing a stone basket the larger fragments were removed under direct vision. Stone fragments were sent for chemical analysis. A 5 [place] open-ended catheter was then placed through the ureteral access sheath and a retrograde pyelogram was performed. The renal collecting system was normal with no filling defects seen and no extravasation noted. The ureteral access sheath was then removed. Cystoscope was reinserted over the remaining wire. A 6 [place] multilength double-J stent was then inserted under direct vision using fluoroscopy guidance. Once good position was confirmed the wire was removed leaving this stent in place. The bladder was emptied and the cystoscope was removed. Patient tolerated procedure well and returned to recovery room in satisfactory condition. Endy Alaniz MD Oct 06, 2018 11:24
[2018-10-06] MEDS ORDERED: KEFL500C17 PO (11:28)
--- NOTE | 2018-10-06 11:38 | REP ---
RETROGRADE PYELOGRAM: Two views. HISTORY: Nephrolithiasis. 2 minutes and 36 seconds of fluoroscopy time is reported. FINDINGS: A sequence of two last image hold fluoroscopically obtained spot radiographs of the abdomen document ureteral cannulation, contrast injection, and stent placement. No laterality markers are visible. Electronically Signed by Carlos Ruiz MD 10/06/2018 07:59 P
[2018-10-06] MEDS ORDERED: MEPERIDINE INJ 25 MG/ML VIAL (J2175) IV PRN (12:00)
[2018-10-06] MEDS ORDERED: NORCO, ANEXSIA 5/325MG TABLET (HYDROcodone/ACETAMINOPHEN) PO PRN (12:00)
[2018-10-06] MEDS ORDERED: METOCLOPRAMIDE INJ 10MG/2ML VIAL (J2765) IV PRN (12:00)
[2018-10-06] MEDS ORDERED: ONDANSETRON 4MG/2ML VIAL (J2405) IV PRN (12:00)
[2018-10-06] MEDS ORDERED: LR 1,000 ML IV SCH (12:00)
[2018-10-06] MEDS ORDERED: fentaNYL 100 MCG/2 ML INJECTION (J3010) IV PRN (12:00)
[2018-10-06 12:45] VITALS: BP 110/66
[2018-10-06] MEDS ORDERED: ACETAMINOPHEN 500 MG TAB PO ONE (13:15)
[2018-10-06] MEDS ORDERED: CEPHALEXIN 500 MG CAP PO SCH (16:00)
[2018-10-11 00:58] LABS: Amm Acid Urate 15 % (.); Ca Ox Monohydrate 35 % (.)
== END 2018-10-06 12:58 | disposition home or self-care (01) ==
LOC: M SDC 07:33
PROVIDERS: ATTEND Urology
DX: N20.0 Calculus of kidney (principal); K90.9 Intestinal malabsorption, unspecified; K21.9 Gastro-esophageal reflux disease without esophagitis; Z79.899 Other long term (current) drug therapy; Z79.52 Long term (current) use of systemic steroids; F32.9 Major depressive disorder, single episode, unspecified
CPT/HCPCS: 52356; 74420; 82360; 84703; 88300; C1769; C1894; C2617; J0690; J1100; J2250; J2405; J3010; Q9961

== ENCOUNTER → 2018-10-19 | Outpatient (CLI) | payer OTHER ==
[~2018-10-19] MED LIST changes: +KEFL500C17 PO; -LIDOCAINE 1% MDV 20ML VIAL As Ordered ONE
--- NOTE | 2018-10-19 15:03 | REP ---
Chest x-ray: Two views. History: Cough. Comparison study: September 26, 2018. Findings: An upper lobe pattern of cystic bronchiectasis and associated parenchymal opacity is again noted consistent with the diagnosis of cystic fibrosis. Markings are a little heavier along the lateral aspect of the upper lobe bronchiectatic changes today consistent with some retained bronchial secretions in the right upper lobe region. No definite new infiltrate is seen. Pleural angles are sharp. Heart size is normal. A pigtailed ureteral stent is noted in place on the right. Impression: Cystic fibrosis changes bilaterally in the upper lobes. Heavier lung markings in the right upper lobe laterally consistent with retained secretions here. No other new pulmonary parenchymal opacity seen. Electronically Signed by Carlos Ruiz MD 10/19/2018 04:25 P
== END ==
LOC: M ADAMS 14:06
PROVIDERS: ATTEND Physician Assistant
DX: R05 Cough (principal); E84.9 Cystic fibrosis, unspecified

== ENCOUNTER → 2018-11-10 | Outpatient (CLI) | payer OTHER ==
--- NOTE | 2018-11-11 07:14 | REP ---
HISTORY: History of renal calculi. COMPARISON: 11/30/2017 which showed a 1 cm sized calcification superimposed over the right nephric silhouette. Today's examination again shows the calcification seemingly superimposed over the right nephric silhouette, however, there is intestinal content obscuring both nephric silhouettes. There are calcifications seen in the right hemipelvis. These were not imaged on the prior exam. The osseous structures are stable and intact. IMPRESSION: Findings as described above. Electronically Signed by Shyam Ballard DO 11/11/2018 08:27 A
== END ==
LOC: M SMT 11:45
PROVIDERS: ATTEND Urology
DX: N20.2 Calculus of kidney with calculus of ureter (principal)

== ENCOUNTER → 2020-04-15 | Outpatient (REF) | payer OTHER ==
[~2020-04-15] MED LIST changes: -AZIT500T2 PO; +AZIT500T5 PO; +PANT40TA29 PO; -PANT40TA3 PO; +ZANT150T40 PO; -ZANTTAB PO
[2020-04-15 18:23] LABS: BASO # 0.1 10^3/uL (0.0-0.2); BASO % 1.2 % (0.0-1.0); EOS # 0.3 10^3/uL (0.0-0.5); EOS % 3.9 % (0.0-3.0); HEMATOCRIT 43.4 % (36.0-47.0); HEMOGLOBIN 13.8 g/dl (12.0-15.5); LYMPH # 2.2 10^3/uL (1.5-5.0); LYMPH % 26.2 % (24.0-44.0); MEAN CORPUSCULAR HEMOGLOBIN 28.6 pg (27.0-33.0); MEAN CORPUSCULAR HGB CONC 31.8 g/dl (32.0-36.5); MEAN CORPUSCULAR VOLUME 89.9 fl (80.0-96.0); MONO # 0.7 10^3/uL (0.0-0.8); MONO % 7.9 % (0.0-5.0); NEUTROPHILS # 5.1 10^3/uL (1.5-8.5); NEUTROPHILS % 60.7 % (36.0-66.0); PLATELET COUNT, AUTOMATED 384 10^3/uL (150-450); RED BLOOD COUNT 4.83 10^6/uL (4.00-5.40); WHITE BLOOD COUNT 8.4 10^3/uL (4.0-10.0)
[2020-04-15 18:57] LABS: ALBUMIN 3.9 GM/DL (3.2-5.2); ALT/SGPT 27 U/L (12-78); BILIRUBIN,TOTAL 0.4 MG/DL (0.2-1.0); BLOOD UREA NITROGEN 14 MG/DL (7-18); CALCIUM LEVEL 9.2 MG/DL (8.5-10.1); CARBON DIOXIDE LEVEL 26 MEQ/L (21-32); CHLORIDE LEVEL 105 MEQ/L (98-107); CREATININE FOR GFR 0.64 MG/DL (0.55-1.30); GLOMERULAR FILTRATION RATE > 60.0 (>60); GLUCOSE, FASTING 79 MG/DL (70-100); POTASSIUM SERUM 4.2 MEQ/L (3.5-5.1); SODIUM LEVEL 136 MEQ/L (136-145); TOTAL PROTEIN 8.2 GM/DL (6.4-8.2)
== END ==
LOC: M LABDRWAD 16:31
PROVIDERS: ATTEND Internal Medicine Critical Care Medicine
DX: E84.9 Cystic fibrosis, unspecified (principal)

== ENCOUNTER → 2020-07-12 | Outpatient (CLI) | payer OTHER | LOC: M LABSMTC 10:26 | PROVIDERS: ATTEND Family Medicine | DX: Z20.822 Contact with and (suspected) exposure to COVID-19 (principal) ==

== ENCOUNTER 2022-04-12 10:15 | Emergency (ER) | payer OTHER ==
[~2022-04-12] VITALS: Ht 152.4 cm; Wt 48.2 kg
[~2022-04-12 10:15] MED LIST changes: +ALBU2.5V10 INH; -ALBU83IN INH; -DOXY100C PO; +DOXY100C3 PO
[2022-04-12 10:42] VITALS: BP 174/91
== END 2022-04-12 12:46 | disposition left against medical advice (07) ==
LOC: EDBD 10:15 → M ED 10:15
DX: Z53.21 Procedure and treatment not carried out due to patient leaving prior to being seen by health care provider (principal)

== ENCOUNTER → 2022-09-20 | Outpatient (REF) | payer OTHER ==
[~2022-09-20] MED LIST changes: +MONT-5 PO; -SING10TA32 PO
== END ==
LOC: M LABDRWAD 15:54
PROVIDERS: ATTEND Urology
DX: N30.90 Cystitis, unspecified without hematuria (principal)

== ENCOUNTER → 2023-05-11 | Outpatient (REF) | payer OTHER | LOC: M LABDRWAD 13:21 | PROVIDERS: ATTEND Nurse Practitioner Adult Health | DX: E55.9 Vitamin D deficiency, unspecified (principal) ==